=== PATIENT | female | born 1940 | race Caucasian/White ===

== ENCOUNTER → 2018-04-21 | Outpatient (CLI) | payer MEDICARE, OTHER ==
--- NOTE | 2018-04-22 16:45 | WOMENS IMAGING REPORT ---
EXAM DESCRIPTION: 3D SCREENING MAMMO BILAT COMPLETED DATE/TIME: 04/21/2018 1:29 pm REASON FOR STUDY: SCREENING MAMMO Z12.31 ENCNTR SCREEN MAMMOGRAM FOR MALIGNANT NEOPLASM OF [place] COMPARISON: Multiple since 2008 TECHNIQUE: Standard craniocaudal and mediolateral oblique views of each breast recorded using digita l acquisition and breast tomosynthesis. LIMITATIONS: None. FINDINGS: RIGHT BREAST MASSES: No suspicious masses. CALCIFICATIONS: At the right breast 12 o'clock position, about 8 cm from the nipple there are new bra nching calcifications which require further investigation with compression magnification views. ARCHITECTURAL DISTORTION: None. DEVELOPING DENSITY: None. ASYMMETRY: None noted. OTHER: No other significant findings. LEFT BREAST MASSES: No suspicious masses. CALCIFICATIONS: No new or suspicious calcifications. ARCHITECTURAL DISTORTION: None. DEVELOPING DENSITY: None. ASYMMETRY: None noted. OTHER: No other significant findings. Read with the assistance of CAD. .[facility] - R2 Cenova Version 1.3 .[facility] Imaging - R2 Cenova Version 1.3 .[facility] Imaging - R2 Cenova Version 2.4 .[facility] - R2 Cenova Version 2.4 .[facility] - R2 Environmental Compliance Manager Version 9.2 IMPRESSION: Calcifications right breast which require further evaluation with compression magnificat ion views No mammographic evidence for malignancy left breast BREAST DENSITY: c. The breasts are heterogeneously dense, which may obscure small masses. BIRAD: 0 Incomplete: Needs Additional Imaging Evaluation and/or prior Mammograms for Comparison. RECOMMENDATION: RECOMMENDED FOLLOW-UP: Right breast diagnostic mammograms The patient will be contacted for additional imaging. COMMENT: The patient has been notified of the results by letter per SA requirements. Additional no tification policies are in place for contacting patient with suspicious or incomplete findings. Quality ID #[id number]: The [employer] recommends an annual screening mammogram for women aged 40 years or over. This facility utilizes a reminder system to ensure that all patients receive reminder letters, and/or direct phone calls for appointments. This includes reminders for routine scr eening mammograms, diagnostic mammograms, or other Breast Imaging Interventions when appropriate. Th is patient will be placed in the appropriate reminder system. The [employer] (ACR) has developed recommendations for screening MRI of the breast s in certain patient populations, to be used in conjunction with mammography. Breast MRI surveillanc e may be appropriate for women with more than 20% lifetime risk of developing breast cancer as deter mined by genetic testing, significant family history of the disease, or history of mantle radiation f or Hodgkins Disease. ACR Practice Guidelines 2008. DBT Technology DBT is a type of tomographic mammography. With conventional mammography, overlapping breast tissue ma y make lesions difficult to detect, even with good compression. DBT uses an x-ray tube that rotates a round the breast, taking images at different angles. These images are then combined to create thin sl ices of the breast that the radiologist can view as a 3D reconstruction. The [employer] unit can perform full-field digital mammograms (2D imaging); or DBT (3D imaging); or both, in a combination mode that quickly performs both the mammogram and the tomosynthesis scan while the breast is still compressed. PQRS 6045F: Fluoroscopic imaging is not utilized for breast tomosynthesis. TECHNICAL DOCUMENTATION: FINDING NUMBER: (1) ASSESSMENT: (1) JOB ID: [id number] [employer]- All Rights Reserved Reading location - IP/workstation name: [email or web address]
== END ==
LOC: WI 13:11
PROVIDERS: ATTEND Internal Medicine
DX: Z12.31 Encounter for screening mammogram for malignant neoplasm of breast (principal)
CPT/HCPCS: 77063; 77067

== ENCOUNTER → 2018-04-30 | Outpatient (CLI) | payer MEDICARE, OTHER ==
--- NOTE | 2018-04-30 15:41 | WOMENS IMAGING REPORT ---
EXAM DESCRIPTION: RIGHT DIAGNOSTIC MAMMO W/CAD; U/S BREAST UNILAT LIMITED COMPLETED DATE/TIME: 04/30/2018 12:52 pm; 04/30/2018 1:54 pm REASON FOR STUDY: MICROCALCIFICATIONS; RT BREAST R92.0 R92.0 MAMMOGRAPHIC MICROCALCIFICATION FOUND ON DX IMAGING OF COMPARISON: Multiple previous mammograms and 2009 TECHNIQUE: Compression magnification craniocaudal and 90 mediolateral images of the breast recorde d with digital acquisition. Additional right whole breast 90 mediolateral view. Right breast ultrasound was also performed. LIMITATIONS: None. FINDINGS: BREAST: Right MASSES: At the 12 o'clock position right breast, an ill-defined mammographic mass is present measurin g about 3 cm in greatest diameter. There are pleomorphic branching calcifications in the mass. This is highly suspicious for malignancy. CALCIFICATIONS: Pleomorphic branching calcifications in the right breast mass at the 12 o'clock posit ion highly suspicious for malignancy ARCHITECTURAL DISTORTION: None. DEVELOPING DENSITY: None. ASYMMETRY: None noted. OTHER: No other significant findings. Read with the assistance of CAD. .[facility] - R2 Cenova Version 1.3 .[facility] Imaging - R2 Cenova Version 1.3 .[facility] Imaging - R2 Cenova Version 2.4 .[facility] - R2 Cenova Version 2.4 .[facility] - R2 Technical Training Manager Version 9.2 Right breast ultrasound: Ultrasound of the right breast was performed by myself as well as the technologist. At the 12 o'cloc k position, 7 cm from the nipple, a hypoechoic solid mass is present measuring about 2.5 by 1.5 cm in size. There is internal color flow present. On real-time scanning, the calcifications of concern a re seen within the mass. This is highly suspicious for malignancy. Ultrasound-guided core biopsy wi th post biopsy clip placement with follow-up two-view postprocedure mammogram recommended. Ultrasound of the right axilla is unremarkable. No adenopathy. IMPRESSION: Malignant appearing right breast mass 7 cm from the nipple 12 o'clock position. Ultraso und-guided core biopsy, post biopsy clip placement with immediate post procedure follow-up two-view m ammogram recommended. BREAST DENSITY: b. There are scattered areas of fibroglandular density. BIRAD: 5 Highly suggestive of malignancy. Appropriate action should be taken. RECOMMENDATION: RECOMMENDED FOLLOW UP: Right breast ultrasound-guided core biopsy with post biopsy c lip placement 12 o'clock position SPECIFIC INTERVENTION/IMAGING/CONSULTATION RECOMMENDED:Right breast ultrasound-guided core biopsy wit h post biopsy clip placement COMMUNICATION:These results were discussed with the patient. She is amenable to biopsy being perform ed at [facility] COMMENT: The patient has been notified of the results by letter per SA requirements. Additional no tification policies are in place for contacting patient with suspicious or incomplete findings. Quality ID #225: The [employer] recommends an annual screening mammogram for women aged 40 years or over. This facility utilizes a reminder system to ensure that all patients receive reminder letters, and/or direct phone calls for appointments. This includes reminders for routine scr eening mammograms, diagnostic mammograms, or other Breast Imaging Interventions when appropriate. Th is patient will be placed in the appropriate reminder system. The [employer] (ACR) has developed recommendations for screening MRI of the breast s in certain patient populations, to be used in conjunction with mammography. Breast MRI surveillanc e may be appropriate for women with more than 20% lifetime risk of developing breast cancer as deter mined by genetic testing, significant family history of the disease, or history of mantle radiation f or Hodgkins Disease. ACR Practice Guidelines 2008. TECHNICAL DOCUMENTATION: FINDING NUMBER: (1) ASSESSMENT: (1) JOB ID: [id number] [email or web address]- All Rights Reserved Reading location - IP/workstation name: [email or web address]
--- NOTE | 2018-04-30 15:41 | WOMENS IMAGING REPORT ---
EXAM DESCRIPTION: RIGHT DIAGNOSTIC MAMMO W/CAD; U/S BREAST UNILAT LIMITED COMPLETED DATE/TIME: 04/30/2018 12:52 pm; 04/30/2018 1:54 pm REASON FOR STUDY: MICROCALCIFICATIONS; RT BREAST R92.0 R92.0 MAMMOGRAPHIC MICROCALCIFICATION FOUND ON DX IMAGING OF COMPARISON: Multiple previous mammograms and 2009 TECHNIQUE: Compression magnification craniocaudal and 90 mediolateral images of the breast recorde d with digital acquisition. Additional right whole breast 90 mediolateral view. Right breast ultrasound was also performed. LIMITATIONS: None. FINDINGS: BREAST: Right MASSES: At the 12 o'clock position right breast, an ill-defined mammographic mass is present measurin g about 3 cm in greatest diameter. There are pleomorphic branching calcifications in the mass. This is highly suspicious for malignancy. CALCIFICATIONS: Pleomorphic branching calcifications in the right breast mass at the 12 o'clock posit ion highly suspicious for malignancy ARCHITECTURAL DISTORTION: None. DEVELOPING DENSITY: None. ASYMMETRY: None noted. OTHER: No other significant findings. Read with the assistance of CAD. .[facility] - R2 Cenova Version 1.3 .[facility] Imaging - R2 Cenova Version 1.3 .[facility] Imaging - R2 Cenova Version 2.4 .[facility] - R2 Cenova Version 2.4 .[facility] - R2 Residential Aide Version 9.2 Right breast ultrasound: Ultrasound of the right breast was performed by myself as well as the technologist. At the 12 o'cloc k position, 7 cm from the nipple, a hypoechoic solid mass is present measuring about 2.5 by 1.5 cm in size. There is internal color flow present. On real-time scanning, the calcifications of concern a re seen within the mass. This is highly suspicious for malignancy. Ultrasound-guided core biopsy wi th post biopsy clip placement with follow-up two-view postprocedure mammogram recommended. Ultrasound of the right axilla is unremarkable. No adenopathy. IMPRESSION: Malignant appearing right breast mass 7 cm from the nipple 12 o'clock position. Ultraso und-guided core biopsy, post biopsy clip placement with immediate post procedure follow-up two-view m ammogram recommended. BREAST DENSITY: b. There are scattered areas of fibroglandular density. BIRAD: 5 Highly suggestive of malignancy. Appropriate action should be taken. RECOMMENDATION: RECOMMENDED FOLLOW UP: Right breast ultrasound-guided core biopsy with post biopsy c lip placement 12 o'clock position SPECIFIC INTERVENTION/IMAGING/CONSULTATION RECOMMENDED:Right breast ultrasound-guided core biopsy wit h post biopsy clip placement COMMUNICATION:These results were discussed with the patient. She is amenable to biopsy being perform ed at [facility] COMMENT: The patient has been notified of the results by letter per SA requirements. Additional no tification policies are in place for contacting patient with suspicious or incomplete findings. Quality ID #225: The [employer] recommends an annual screening mammogram for women aged 40 years or over. This facility utilizes a reminder system to ensure that all patients receive reminder letters, and/or direct phone calls for appointments. This includes reminders for routine scr eening mammograms, diagnostic mammograms, or other Breast Imaging Interventions when appropriate. Th is patient will be placed in the appropriate reminder system. The [employer] (ACR) has developed recommendations for screening MRI of the breast s in certain patient populations, to be used in conjunction with mammography. Breast MRI surveillanc e may be appropriate for women with more than 20% lifetime risk of developing breast cancer as deter mined by genetic testing, significant family history of the disease, or history of mantle radiation f or Hodgkins Disease. ACR Practice Guidelines 2008. TECHNICAL DOCUMENTATION: FINDING NUMBER: (1) ASSESSMENT: (1) JOB ID: [id number] [employer]- All Rights Reserved Reading location - IP/workstation name: [email or web address]
== END ==
LOC: WI 12:34
PROVIDERS: ATTEND Internal Medicine
DX: R92.0 Mammographic microcalcification found on diagnostic imaging of breast (principal)
CPT/HCPCS: 76642

== ENCOUNTER → 2018-05-12 | Day surgery (SDC) | payer MEDICARE, OTHER ==
[~2018-05-12] MED LIST: LIDOCAINE 2% INJ (20 MG/ML) 20 ML MDV ONE
--- NOTE | 2018-05-15 17:53 | WOMENS IMAGING REPORT ---
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 The patient was scanned and the area of interest in the 12 o'clock position 10 cm from the nipple of the right breast was localized. This correlates with the area of concern on prior imaging studies. T his area was targeted for ultrasound-guided core biopsy. After sterile skin prep and 2.5 mL local lidocaine 1% for skin and deep tissue anesthesia, a 14 gauge coaxial core biopsy needle was used to obtain several cores of tissue from the lesion. Under ultras ound guidance, a ribbon clip was placed in the areas sampled. There were no immediate post-procedure complications. MAMMOGRAM: Post-procedure two view mammogram was acquired in the digital mammogram suite. The clip wa s in the expected location. No significant hematoma. Pathology yields a diagnosis of malignancy, invasive poorly differentiated ductal carcinoma Pathology is concordant. LIMITATIONS: None. FINDINGS: Ultrasound guided breast biopsy as described above. POST PROCEDURE MAMMOGRAMS FOR MARKER PLACEMENT: Yes IMPRESSION: ULTRASOUND-GUIDED CORE BIOPSY OF THE RIGHT BREAST YIELDS A DIAGNOSIS OF MALIGNANCY BI-RADS 6 Known biopsy-proven malignancy. Appropriate action should be taken. COMMENT: These results were discussed with the patient 1600 hours, 05/14/2018. She understands this is a malignant diagnosis. COMMUNICATION: THESE RESULTS WERE DISCUSSED WITH DR. GODFREY, 1630 HOURS 05/14/2018. Patient medication list reviewed: Yes- Quality ID# [id number]:Eligible professional attests to documenting i n the medical record they obtained, updated, or reviewed the patient's current medications. TECHNICAL DOCUMENTATION: JOB ID: [id number] [employer]- All Rights Reserved Reading location - IP/workstation name: [email or web address]
== END ==
LOC: WI 12:31
PROVIDERS: ATTEND Internal Medicine
DX: C50.911 Malignant neoplasm of unspecified site of right female breast (principal)
CPT/HCPCS: 88342 ×2; 88341 ×2; 88305 ×2; 19083; J3490

== ENCOUNTER 2018-06-10 08:19 | Day surgery (SDC) | payer MEDICARE, OTHER ==
[2018-06-04 10:58] LABS: HEMATOCRIT 37.8 % (36.0-47.0); HEMOGLOBIN 13.5 g/dL (12.0-15.5); MEAN CORPUSCULAR HEMOGLOBIN 34.8 pg (27.0-33.4); MEAN CORPUSCULAR HGB CONC 35.6 g/dL (32.0-36.0); MEAN CORPUSCULAR VOLUME 98 fl (80-97); PLATELET COUNT 184 10^3/uL (150-450); RED BLOOD COUNT 3.88 10^6/uL (3.72-5.28); WHITE BLOOD COUNT 4.6 10^3/uL (4.0-10.5)
--- NOTE | 2018-06-04 10:59 | RADIOLOGY REPORT (SQ) ---
EXAM DESCRIPTION: CHEST PA/LATERAL COMPLETED DATE/TIME: 06/04/2018 10:48 am REASON FOR STUDY: PRE-OP COMPARISON: None. EXAM PARAMETERS: NUMBER OF VIEWS: two views TECHNIQUE: Digital Frontal and Lateral radiographic views of the chest acquired. RADIATION DOSE: NA LIMITATIONS: none FINDINGS: LUNGS AND PLEURA: Upper lobes are hyperlucent from obstructive disease. No focal infiltra elvin. No pleural effusion or pneumothorax. MEDIASTINUM AND HILAR STRUCTURES: No masses or contour abnormalities. HEART AND VASCULAR STRUCTURES: Heart normal size. No evidence for failure. BONES: Osteopenic. No thoracic compression deformities HARDWARE: None in the chest. OTHER: No other significant finding. IMPRESSION: Obstructive lung disease. TECHNICAL DOCUMENTATION: JOB ID: [id number] [employer]- All Rights Reserved Reading location - IP/workstation name: [email or web address]
--- NOTE | 2018-06-04 11:36 | EKG REPORT ---
SEVERITY:- NORMAL ECG - SINUS RHYTHM : Confirmed by: Joan Servin MD 04-Jun-2018 11:35:53
[2018-06-04 12:01] LABS: ALANINE AMINOTRANSFERASE 53 U/L (9-52); ALBUMIN 4.6 g/dL (3.5-5.0); ALKALINE PHOSPHATASE 32 U/L (38-126); ANION GAP 11 (5-19); ASPARTATE AMINO TRANSFERASE 44 U/L (14-36); BILIRUBIN,DIRECT 0.4 mg/dL (0.0-0.4); BILIRUBIN,TOTAL 0.6 mg/dL (0.2-1.3); BLOOD UREA NITROGEN 12 mg/dL (7-20); CALCIUM 9.6 mg/dL (8.4-10.2); CARBON DIOXIDE 28 mmol/L (22-30); CHLORIDE 95 mmol/L (98-107); GLUCOSE 119 mg/dL (75-110); POTASSIUM 4.1 mmol/L (3.6-5.0); SODIUM 134.1 mmol/L (137-145); TOTAL PROTEIN 7.4 g/dL (6.3-8.2)
[~2018-06-10 08:19] MED LIST changes: +CEFAZOLIN 1 GM/D5W RTU 1 GM/50 ML RTUPB IV PRN; -LIDOCAINE 2% INJ (20 MG/ML) 20 ML MDV ONE; +LIDOCAINE 4% TRANSPARENT DRESSING 5 GM KIT TP PRN; +RINGERS SOLUTION,LACTATED 1,000 ML IV PRN
[2018-06-10 09:54] LABS: POTASSIUM 3.9 mmol/L (3.6-5.0)
[2018-06-10] MEDS ORDERED: LIDOCAINE 2% INJ (20 MG/ML) 20 ML MDV ONE (10:41)
[2018-06-10] MEDS ORDERED: FENTANYL CITRATE INJ/PF 100 MCG/2 ML AMPUL ONE ×2 (13:25→15:58)
[2018-06-10] MEDS ORDERED: DEXAMETHASONE SOD PHOSPHATE INJ 4 MG/1 ML VIAL ONE (13:26)
[2018-06-10] MEDS ORDERED: ONDANSETRON HCL INJ/PF 4 MG/2 ML SDV ONE (13:26)
[2018-06-10] MEDS ORDERED: MIDAZOLAM 2 MG/2 ML INJ ONE (13:26)
[2018-06-10] MEDS ORDERED: PROPOFOL INJ 200 MG/20 ML VIAL IV ONE (13:26)
[2018-06-10] MEDS ORDERED: HYDROMORPHONE HCL INJ/PF 2 MG/ML AMPULE ONE (13:26)
[2018-06-10] MEDS ORDERED: LIDOCAINE 1%/EPINEPHRINE INJ 20 ML VIAL ONE (13:29)
[2018-06-10] MEDS ORDERED: MICROFIBRILLAR COLLAGEN 1 GM PACK ONE (13:29)
--- NOTE | 2018-06-10 13:42 | RADIOLOGY REPORT (SQ) ---
EXAM DESCRIPTION: NM LYMPHATICS/LYMPH GLANDS COMPLETED DATE/TIME: 06/10/2018 10:42 am REASON FOR STUDY: RT BREAST CANCER C50.911 MALIGNANT NEOPLASM OF UNSP SITE OF RIGHT FEMALE MICHLELE Z79 .01 RN REHABILITATION (CURRENT) USE OF ANTICOAGULANTS Z79.899 OTHER HALFWAY (CURRENT) DRUG THERAPY COMPARISON: CT cervical spine 01/16/2017 RADIONUCLIDE AND DOSE: 548 microcuries TC-99m tilmanocept - Lymphoseek. The route of agent administration: Subcutaneous in the skin. TECHNIQUE: The skin of the right breast was prepped in sterile fashion. The radiopharmaceutical was administered in equally divided doses in the periareolar breast, from the 10 o'clock to the 2 o'cloc k position. LIMITATIONS: None. FINDINGS: Images demonstrate activity at the injection site. There is migration toward the right ax illa. IMPRESSION: ADMINISTRATION OF RADIOPHARMACEUTICAL FOR SENTINEL LYMPH NODE EVALUATION. TECHNICAL DOCUMENTATION: JOB ID: [id number] [email or web address]- All Rights Reserved Reading location - IP/workstation name: [email or web address]
[2018-06-10] MEDS ORDERED: METHYLENE BLUE 50 MG/10 ML AMPULE ONE (13:45)
[2018-06-10] MEDS ORDERED: EPHEDRINE SULFATE INJ 50 MG/1 ML AMPULE ONE (14:22)
[2018-06-10] MEDS ORDERED: FENTANYL CITRATE INJ/PF 250 MCG/5 ML AMPULE ONE (15:06)
[2018-06-10] MEDS ORDERED: MEPERIDINE HCL/PF INJ 25 MG/1 ML DISP.SYRIN IV PRN (15:12)
[2018-06-10] MEDS ORDERED: DIPHENHYDRAMINE HCL 50 MG/ML VIAL IV PRN (15:12)
[2018-06-10] MEDS ORDERED: MORPHINE SULFATE 10 MG/ML INJ IV PRN (15:12)
[2018-06-10] MEDS ORDERED: PROMETHAZINE HCL INJ 25 MG/1 ML VIAL IV PRN ×2 (15:12)
[2018-06-10] MEDS ORDERED: FENTANYL CITRATE INJ/PF 100 MCG/2 ML AMPUL IV PRN ×3 (15:12)
--- NOTE | 2018-06-10 15:35 | Operative Report ---
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 Open needle localized excisional biopsy right breast carcinoma. 2. Use of ultrasonography during the lumpectomy. 3. Intraoperative imaging of specimen with interpretation. 4. [place] lymph node biopsy right axilla using dual mapping technique. SURGEON: NIDA STOCK ARC WELDER: ZAHRAA ENRIQUEZ ANESTHESIA: GA TISSUE REMOVED OR ALTERED: Right breast lump with needle 1, wire 2, microcalcifications; sentinel lymph node right axilla 1 COMPLICATIONS: None ESTIMATED BLOOD LOSS: Scant INTRAOPERATIVE FINDINGS: See below PROCEDURE: Patient seen in preop holding area after undergoing lymphoscintigraphy the right breast. She had area of increased activity in the right axilla consistent with successful sentinel lymph node pain. The patient was taken directly to the operating room she underwent general anesthesia. The right arm was abducted, dressings removed, hubs of both localizing needles and wires removed with the street light wirer. Right breast exposed , and blue dye, methylene blue, injected into the right breast, areole or border , intradermally, a 25-gauge needle. Right breast massage, then prepped and draped in a sterile fashion. Surgical plan surgical timeout conducted. We performed intraoperative ultrasonography. The localizing needles and wires were full echoic tissue, with microcalcifications consistent with malignancy confirmed between the 2 wires. The skin was anesthetized with 1% plain lidocaine with epinephrine. Approximately 6 cm transverse upper quadrant incision was made along the lines of langherhans. Using real-time ultrasonography as a guide, we performed a right breast lumpectomy using combination of blunt and electrocautery dissection. The lump excised is approximately 10 cm in diameter, with specimen oriented anatomically with the 12:00 needle line in the 12 o'clock position. We then rotated the mass 90 caudad for a second view. The findings were consistent with retention of 2 wires, and one needle; the second needle was removed from the right breast during the dissection. The target microcalcifications and masslike effect were also identified. Dr. Rachel Ortega , radiologist, confirmed successful retention of wires, needle, and microcalcifications as well as a clip marker placed during previous ultrasonographically directed core biopsy. Assessment was sent to pathology for permanent analysis operation. The neoprobe was used to localize a single dominant central lymph node which was in the low axilla, level 1 with an in vivo count of 8884 and an ex vivo count of 10 ,151. This lymph node was associated with a non-blue lymph node in this immediate vicinity and this was submitted with the single sentinel lymph node described above. We returned to the right axilla and scan did not increased activity in the axilla. We felt that the sentinel node harvest portion of the operation was complete. The wound cavity was inspected very carefully for bleeding and there was none. Avitene was placed in the recesses of the wound and a slurry consistency, the wound closed with 3-0 Vicryl, bungalow applied. Patient tolerated the procedure well, extubated, taken to recovery room in stable condition. The physician accounting assistant, Ms. Jaime, provided assistance during this case by: Assisting, retracting tissue, instillation of local anesthesia and closure of skin incisions.
--- NOTE | 2018-06-10 15:43 | Discharge Summary ---
Discharge Summary (SDC) - Discharge Final Diagnosis: Right breast cancer Date of Surgery: 06/10/18 Discharge Date: 06/10/18 Condition: Stable Treatment or Instructions: [facility] [address], [place] [address] Care Instructions Following Your Lumpectomy Activities: Resume normal activities when you feel comfortable. It is best to remain as active as possible to speed your recovery. It is common to experience some fatigue after surgery and you may find that short naps are helpful. Avoid strenuous activity such as weight lifting, tennis, etc at your surgical site for two weeks. Perform gentle arm exercises daily and do not favor your operative arm to due increased risk of mobility issues postoperatively. No driving for 7 days after surgery. Do not drive if you are taking pain medication other than Tylenol or Ibuprofen. No swimming, tub baths or soaking in a hot tub for 4 weeks. There are no dietary restrictions. Do not smoke as this impairs wound healing. Surgical Site care: You may shower in 24 hours to include washing the wound with soap and water using your hands. Leave skin glue intact. Do not scrub the incision. Pat the area dry with a towel. You do not need to recover the wound although some patients find that they feel more comfortable using a light dressing for a few days to absorb any minimal drainage which may occur. Do not use heating pad or apply an ice pack to the operative site. You may apply deodorant if you are careful to avoid getting it on the wound itself. Medications: Take Toradol 10mg one pill by mouth every six hours as needed for pain. Resume all of your normal prescription medications after your surgery unless instructed otherwise. You may experience constipation after surgery while taking pain medications. If using a narcotic on a regular basis, take a stool softener such as Colace twice a day. It is helpful to stay hydrated by drinking lots of fluids. Walking is also helpful and is good exercise after surgery. If you need extra help, use Milk of Magnesia according to the directions on the package. Follow-up: Call our office at to make a follow-up appointment in 10-14 days. Your doctor will call to discuss the pathology report with you as soon as it is available. Concerns: If you had a sentinel lymph node biopsy with your mastectomy, your urine may have a greenish discoloration. This is normal and will resolve as the blue dye slowly leaves your system. If you notice significant leakage around the drains , this is not normal. The drains may be clogged. Please call our office to come in immediately for the drains to be checked. Some bruising may occur and will go away over time. If you have a fever of 101.5 or greater, chills, redness at the incision site, excessive drainage from your wound or severe pain not relieved by pain medication, call your doctor. A physician is available 24 hours a day 7 days a week in addition to regular office hours. If problems arise after normal office hours please call the hospital at . Please call if you have any questions or concerns. Prescriptions: Ketorolac Tromethamine [Toradol 10 mg Tablet] 10 mg PO Q6HP PRN #20 tablet PRN Reason: Referrals: WENDY GODFREY MD [Primary Care Provider] - Discharge Diet: As Tolerated Discharge Activity: No Lifting Over 10 Pounds, No Lifting/Push/Pulling, Walk Frequently Report the Following to Your Physician Immediately: Increase in Pain, Fever over 101 Degrees, Unusual Bleeding, Redness, Drainage-Foul Smelling
[2018-06-10] MEDS ORDERED: NALOXONE HCL INJ/PF 0.4 MG/1 ML SDV ONE (16:00)
[2018-06-10] MEDS ORDERED: KETOROLAC TROMETHAMINE 10 MG TABLET ONE (16:36)
[2018-06-10 17:51] VITALS: BP 149/75
[2018-06-10] MEDS ORDERED: NEOSTIGMINE METHYLSULFATE 10 MG/10 ML VIAL ONE (20:09)
[2018-06-10] MEDS ORDERED: GLYCOPYRROLATE 1 MG/5 ML SYRINGE ONE (20:09)
[2018-06-10] MEDS ORDERED: ROCURONIUM BROMIDE INJ 50 MG/5 ML VIAL IV ONE (20:09)
[2018-06-10] MEDS ORDERED: SUCCINYLCHOLINE CHLORIDE INJ 200 MG/10 ML VIAL ONE (20:09)
--- NOTE | 2018-06-15 17:45 | WOMENS IMAGING REPORT ---
EXAM DESCRIPTION: WIRE LOC MAMMO COMPLETED DATE/TIME: 06/10/2018 2:33 pm REASON FOR STUDY: RT BREAST NEEDLE LOCALIZATION C50.911 MALIGNANT NEOPLASM OF UNSP SITE OF RIGHT FE MALE MICHELLE Z79.01 TRAY CHECKER (CURRENT) USE OF ANTICOAGULANTS Z79.899 OTHER TRAY CHECKER (CURRENT) DRUG T HERAPY COMPARISON: Multiple previous TECHNIQUE: The lesion in the right breast was localized mammographically using a grid marker. The skin of the breast was prepped in sterile fashion and local anesthesia was provided. 5 cm Kopan's ne edles were placed along the anterior most and posterior most extent of the pleomorphic calcifications in the right breast 12 o'clock position. The needle tips were positioned adjacent to the target sulema cifications and confirmed with two orthogonal views. Surgical dye was not injected for this procedure . The wire was placed through the needle and the hook engaged. Post procedure mammogram demonstrates satisfactory position of the needle and wire. Specimen radiograph demonstrates the intact localization wire as well as the targeted lesion within t he biopsy specimen. LIMITATIONS: None. FINDINGS: Procedure as above. Pathology: Pending. IMPRESSION: SUCCESSFUL NEEDLE LOCALIZATION OF THE LESION IN THE RIGHT BREAST. FOLLOW-UP PER THE PATIENT'S SURGEON. TECHNICAL DOCUMENTATION: JOB ID: [id number] [employer]- All Rights Reserved Reading location - IP/workstation name: [email or web address]
--- NOTE | 2018-06-15 17:46 | RADIOLOGY REPORT (SQ) ---
EXAM DESCRIPTION: BREAST SPECIMEN COMPLETED DATE/TIME: 06/10/2018 3:23 pm REASON FOR STUDY: BREAST SPECIMEN/BIOPSY RIGHT BREAST C50.911 MALIGNANT NEOPLASM OF UNSP SITE OF R IGHT FEMALE MICHELLE Z79.01 ASSISTED (CURRENT) USE OF ANTICOAGULANTS Z79.899 OTHER ASSISTED (CURRENT) DRUG THERAPY COMPARISON: Multiple previous TECHNIQUE: Specimen radiograph from breast procedure performed in the operating room. LIMITATIONS: None. FINDINGS: Specimen radiograph from breast procedure performed in the operating room. Calcification s of concern have been resected. Please see procedure note for details and final pathology. IMPRESSION: Specimen radiograph. TECHNICAL DOCUMENTATION: JOB ID: [id number] Reading location - IP/workstation name: [email or web address]
== END 2018-06-10 17:53 | disposition home or self-care (01) ==
LOC: OROUT 08:19
PROVIDERS: ATTEND Surgery
DX: C50.911 Malignant neoplasm of unspecified site of right female breast (principal); K21.9 Gastro-esophageal reflux disease without esophagitis; I10 Essential (primary) hypertension; E11.9 Type 2 diabetes mellitus without complications; F17.210 Nicotine dependence, cigarettes, uncomplicated; Z79.84 Long term (current) use of oral hypoglycemic drugs; Z79.899 Other long term (current) drug therapy; Z88.5 Allergy status to narcotic agent
CPT/HCPCS: 93005; 36415 ×2; 82962; 82947; 84132; 85027; 80053; 88342 ×2; 88307 ×2; 71046; 78195; 93010; 19281; 76098; 19101; 38500; A9520; J2250; J3490 ×7; J0690; J1100; J3010 ×2; J2310; J1170; J0330; J2405; A9270; J2704; Q9968; 1610

== ENCOUNTER 2018-07-18 16:56 | Inpatient (IN) | payer MEDICARE, OTHER ==
--- NOTE | 2018-07-18 18:55 | ER Document Report ---
ED Medical Screen (RME) - General Chief Complaint: Breast Problem Stated Complaint: BREAST ISSUE Time Seen by Provider: 07/18/18 18:53 Notes: 77-year-old female patient with recent diagnosis of breast cancer. Had lumpectomy performed by Dr. Cox with general surgery on 06/10/2018. Today at approximately 1700 she began to notice drainage coming out of the previous incision site. Seems to be yellow. Some tenderness to palpation. Denies any fever, chills, sweats. Denies any shortness of breath or other symptoms at this time. I have greeted and performed a rapid initial assessment of this patient. A comprehensive ED assessment and evaluation of the patient, analysis of test results and completion of the medical decision making process will be conducted by additional ED providers. TRAVEL OUTSIDE OF THE [place] IN LAST 30 DAYS: No - Related Data Allergies/Adverse Reactions: aspirin [From Percodan] Allergy (Verified 07/18/18 16:59) itching oxycodone HCl [From Percodan] Allergy (Verified 07/18/18 16:59) itching oxycodone terephthalate [From Percodan] Allergy (Verified 07/18/18 16:59) itching Past Medical History - Past Medical History Cardiac Medical History: Reports: Hx Hypercholesterolemia, Hx Hypertension - ON MEDS Denies: Hx Coronary Artery Disease, Hx Heart Attack Pulmonary Medical History: Denies: Hx Asthma, Hx Bronchitis, Hx COPD, Hx Pneumonia Neurological Medical History: Denies: Hx Cerebrovascular Accident, Hx Seizures GI Medical History: Reports: Hx Gastroesophageal Reflux Disease Musculoskeltal Medical History: Reports Hx Arthritis - OSTEO Past Surgical History: Reports: Hx Appendectomy, Hx Breast Surgery - left breast lumpectomy, Hx Kidney (Renal Surgery) - Immunizations Hx Diphtheria, Pertussis, Tetanus Vaccination: Yes History of Influenza Vaccine for 07/2017 - 12/2017 Season: Yes Influenza Administration Date for 07/2017 - 12/2017 Season: 07/28/17 Physical Exam - Vital signs Vitals: Temp Pulse Resp BP Pulse Ox 98.8 F 60 16 177/80 H 99 07/18/18 17:30 07/18/18 17:30 07/18/18 17:30 07/18/18 17:30 07/18/18 17:30 Course - Vital Signs Vital signs: Temp Pulse Resp BP Pulse Ox 98.8 F 60 16 177/80 H 99 07/18/18 17:30 07/18/18 17:30 07/18/18 17:30 07/18/18 17:30 07/18/18 17:30 Doctor's Discharge - Discharge Referrals: NIDA CXO MD [Primary Care Provider] - Follow up as needed
--- NOTE | 2018-07-18 19:56 | ER Document Report ---
ED General - General Chief Complaint: Breast Problem Stated Complaint: BREAST ISSUE Time Seen by Provider: 07/18/18 18:53 Notes: This is a 77-year-old female patient to the emergency department for drainage from the right breast. Patient had surgery approximately 1-1/2 months ago. Diagnosed with breast cancer. Has not received chemo or radiation yet. Surgery performed by Dr. Cox. Has been doing just fine and then today noticed that she had yellow drainage coming out of her right breast. Denies any fever, chills, sweats at this time but does complain of pain in the right breast now. TRAVEL OUTSIDE OF THE [place] IN LAST 30 DAYS: No - HPI Onset: Just prior to arrival Onset/Duration: Sudden Quality of pain: Achy Severity: Moderate Pain Level: 3 - Related Data Allergies/Adverse Reactions: aspirin [From Percodan] Allergy (Verified 07/18/18 16:59) itching oxycodone HCl [From Percodan] Allergy (Verified 07/18/18 16:59) itching oxycodone terephthalate [From Percodan] Allergy (Verified 07/18/18 16:59) itching Past Medical History - General Information source: Patient - Social History Smoking Status: Current Every Day Smoker Chew tobacco use (# tins/day): No Frequency of alcohol use: None Drug Abuse: None Lives with: Family Family History: Reviewed & Not Pertinent Patient has suicidal ideation: No Patient has homicidal ideation: No - Past Medical History Cardiac Medical History: Reports: Hx Hypercholesterolemia, Hx Hypertension - ON MEDS Denies: Hx Coronary Artery Disease, Hx Heart Attack Pulmonary Medical History: Denies: Hx Asthma, Hx Bronchitis, Hx COPD, Hx Pneumonia Neurological Medical History: Denies: Hx Cerebrovascular Accident, Hx Seizures Renal/ Medical History: Denies: Hx Peritoneal Dialysis GI Medical History: Reports: Hx Gastroesophageal Reflux Disease Musculoskeletal Medical History: Reports Hx Arthritis - OSTEO Past Surgical History: Reports: Hx Appendectomy, Hx Breast Surgery - left breast lumpectomy, Hx Kidney (Renal Surgery) - Immunizations Hx Diphtheria, Pertussis, Tetanus Vaccination: Yes Hx Pneumococcal Vaccination: 05/25/18 Review of Systems - Review of Systems Notes: Constitutional: denies: Chills, Diaphoresis, Fever, Malaise, Weakness EENT: denies: Eye discharge, Blurred vision, Tearing, Double vision, Nose congestion, Nose discharge, Throat swelling, Mouth pain Cardiovascular: denies: Palpitations, Heart racing, Orthopnea, Dyspnea, Chest pain Respiratory: denies: Cough, Hurts to breathe, Wheezing, Shortness of breath Gastrointestinal: denies: Abdominal pain, Diarrhea, Nausea, Vomiting, Black stools, bright red blood in stool Genitourinary: denies: Burning, Dysuria, Discharge, Frequency, Flank pain, Hematuria Musculoskeletal: denies: Joint pain, Joint swelling, Muscle pain, Muscle stiffness, back pain Hematologic/Lymphatic: denies: Anemia, Easy bleeding, Easy bruising, Blood clots. Recent diagnosis of breast cancer. Neurological/Psychological: denies: Confusion, Dementia, Depression, Loss of consciousness Skin: No lesions, no masses, no skin breakdown, no abscesses. Does complain of drainage from the right breast where previous lumpectomy was performed. Physical Exam - Vital signs Vitals: Temp Pulse Resp BP Pulse Ox 98.8 F 60 16 177/80 H 99 07/18/18 17:30 07/18/18 17:30 07/18/18 17:30 07/18/18 17:30 07/18/18 17:30 Interpretation: Normal - General General appearance: Appears well, Alert - HEENT Head: Normocephalic, Atraumatic Eyes: Normal Pupils: PERRL - Respiratory Respiratory status: No respiratory distress Chest status: Nontender Breath sounds: Normal Chest palpation: Normal - Cardiovascular Rhythm: Regular Heart sounds: Normal auscultation Murmur: No - Abdominal Inspection: Normal Distension: No distension Bowel sounds: Normal Tenderness: Nontender Organomegaly: No organomegaly - Back Back: Normal, Nontender - Extremities General upper extremity: Normal inspection, Nontender, Normal color, Normal ROM , Normal temperature General lower extremity: Normal inspection, Nontender, Normal color, Normal ROM , Normal temperature, Normal weight bearing. No: Jorge's sign - Neurological Neuro grossly intact: Yes Cognition: Normal Orientation: AAOx4 Addison Coma Scale Eye Opening: Spontaneous Sandhya Coma Scale Verbal: Oriented Addison Coma Scale Motor: Obeys Commands Addison Coma Scale Total: 15 Speech: Normal Motor strength normal: LUE, RUE, LLE, RLE Sensory: Normal - Psychological Associated symptoms: Normal affect, Normal mood - Skin Skin Temperature: Warm Skin Moisture: Dry Skin Color: Other - There is a surgical incision site present on the right lateral breast. There appears to be a small amount of active drainage coming out of the right breast with small amount of erythema noted around the incision site. Very tender to the touch. Course - Re-evaluation Re-evalutation: 07/18/18 19:53 Surgeon has seen, Dr. Castle. At this time he is admitted to the hospital as patient may need to have incision and drainage. Will consult with medicine for management of her diabetes medical problems. - Vital Signs Vital signs: Temp Pulse Resp BP Pulse Ox 98.8 F 60 16 177/80 H 99 07/18/18 17:30 07/18/18 17:30 07/18/18 17:30 07/18/18 17:30 07/18/18 17:30 Discharge - Discharge Clinical Impression: Abscess of right breast Condition: Good Disposition: ADMITTED INPATIENT Admitting Provider: Surgicalist Rahul Castle Unit Admitted: Surgical Floor Referrals: NIDA COX MD [ACTIVE STAFF] - Follow up as needed
--- NOTE | 2018-07-18 20:11 | PDOC H&P ---
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 She reports the occurrence of greenish discharge from the right breast wound this afternoon after shower. She reports occasional discomfort from her breast, no fever, chills, or other systemic symptoms. She is type 2 diabetic and reports good control of her blood sugar and smokes a few cigarettes per day. Past Medical History Cardiac Medical History: Reports: Hyperlipidema, Hypertension - ON MEDS Denies: Coronary Artery Disease, Myocardial Infarction Pulmonary Medical History: Denies: Asthma, Bronchitis, Chronic Obstructive Pulmonary Disease (COPD), Pneumonia Neurological Medical History: Denies: Seizures GI Medical History: Reports: Gastroesophageal Reflux Disease Musculoskeltal Medical History: Reports: Arthritis - OSTEO Hematology: Denies: Anemia Past Surgical History Past Surgical History: Reports: Appendectomy Social History Smoking Status: Current Every Day Smoker - a few per day Frequency of Alcohol Use: Rare Hx Recreational Drug Use: No Drugs: None Family History Family History: Reviewed & Not Pertinent Parental Family History Reviewed: No Children Family History Reviewed: No Sibling(s) Family History Reviewed.: No Medication/Allergy Home Medications: Albuterol Sulfate [Proair HFA] 1 - 2 puff IH PRN PRN 06/04/18 Cholecalciferol (Vitamin D3) [Vitamin D3 2000 unit Tablet] 2,000 unit PO BID 07/14 Doxycycline Hyclate [Vibramycin] 100 mg PO DAILY 06/04/18 Esomeprazole Magnesium [Nexium] 20 mg PO DAILY 06/04/18 Hydrochlorothiazide [Hydrodiuril 12.5 mg Capsule] 12.5 mg PO QAM 06/04/18 Ibandronate Sodium 150 mg PO .MONTHLY 06/04/18 Letrozole [Femara 2.5 Mg Tablet] 2.5 mg PO DAILY 06/04/18 Lisinopril [Prinivil 30 mg Tablet] 30 mg PO DAILY 06/04/18 Metformin HCl [Glucophage] 500 mg PO BID 06/04/18 Metoprolol Tartrate [Lopressor 50 mg Tablet] 50 mg PO BID 06/04/18 Simvastatin 20 mg PO QPM 06/04/18 Ketorolac Tromethamine [Toradol 10 mg Tablet] 10 mg PO Q6HP PRN #20 tablet 06/10 Allergies/Adverse Reactions: aspirin [From Percodan] Allergy (Verified 07/18/18 16:59) itching oxycodone HCl [From Percodan] Allergy (Verified 07/18/18 16:59) itching oxycodone terephthalate [From Percodan] Allergy (Verified 07/18/18 16:59) itching Physical Exam Vital Signs: Temp Pulse Resp BP Pulse Ox 98.8 F 60 16 177/80 H 99 07/18/18 17:30 07/18/18 17:30 07/18/18 17:30 07/18/18 17:30 07/18/18 17:30 Intake & Output 07/17/18 07/18/18 07/19/18 06:59 06:59 06:59 Weight 62.7 kg General appearance: PRESENT: cooperative, mild distress Head exam: PRESENT: atraumatic Eye exam: PRESENT: EOMI Mouth exam: PRESENT: moist, neck supple Neck exam: PRESENT: full ROM Respiratory exam: PRESENT: clear to auscultation kristin Cardiovascular exam: PRESENT: RRR GI/Abdominal exam: PRESENT: normal bowel sounds, soft Rectal exam: PRESENT: deferred Extremities exam: PRESENT: full ROM Musculoskeletal exam: PRESENT: full ROM Psychiatric exam: PRESENT: anxious Skin exam: PRESENT: other - Right breast: redness around wound with pinpoint opening locate @ 12 o'clock 3 inches above areola, diffuse haziness with erythema of the lower half of the breast with tenderness on palpation; right axilla with no tenderness or skin changes Assessment & Plan - Diagnosis (1) Wound infection after surgery Qualifiers: Encounter type: initial encounter Qualified Code(s): T81.4XXA - Infection following a procedure, initial encounter Is this a current diagnosis for this admission?: Yes (2) Mastitis of right breast unrelated to of Is this a current diagnosis for this admission?: Yes - Plan Summary Plan Summary: A/ S/p right breast lumpectomy and SNL for moderte to poorly differentiated ductal carcinima with DCIS, comedo type on 06/10/18 Draining lumpectomy wound from pinpoint opening with yellow fluid Mastitis located right lower breast NIDDM daily smoker P/ Admit for IV Abx Vanco/Zosyn for broad spectrum bacterial coverage Blood work Blood cx US right breast pending Possible I&D right breast lumpectomy wound if US shows loculated fluid collection or area is unresponsive to initial antibiotic treatment Hospitalist on consult for diabetes managment
[2018-07-18] MEDS ORDERED: ACETAMINOPHEN 325 MG TABLET PO PRN (20:15)
[2018-07-18] MEDS ORDERED: PIPERACILLIN/TAZOBACTAM 3.375 GM VIAL IV SCH (20:15)
[2018-07-18 20:55] LABS: ABSOLUTE EOSINOPHILS # (AUTO) 0.1 10^3/uL (0.0-0.6); ABSOLUTE LYMPHOCYTES (AUTO) 1.6 10^3/uL (0.5-4.7); ABSOLUTE MONOCYTES (AUTO) 0.5 10^3/uL (0.1-1.4); ABSOLUTE NEUT (AUTO) 3.5 10^3/uL (1.7-8.2); BASOPHILS % (AUTO) 0.6 % (0-2); EOSINOPHILS % (AUTO) 1.4 % (0-6); HEMATOCRIT 38.8 % (36.0-47.0); HEMOGLOBIN 13.9 g/dL (12.0-15.5); LYMPHOCYTES % (AUTO) 27.8 % (13-45); MEAN CORPUSCULAR HEMOGLOBIN 34.9 pg (27.0-33.4); MEAN CORPUSCULAR HGB CONC 35.8 g/dL (32.0-36.0); MEAN CORPUSCULAR VOLUME 97 fl (80-97); PLATELET COUNT 202 10^3/uL (150-450); RED BLOOD COUNT 3.98 10^6/uL (3.72-5.28); RED CELL DISTRIBUTION WIDTH 12.9 % (11.5-14.0); SEGMENTED NEUTROPHILS % (AUTO) 61.2 % (42-78); TOTAL CELLS COUNTED % (AUTO) 100 %; WHITE BLOOD COUNT 5.7 10^3/uL (4.0-10.5)
[2018-07-18] MEDS ORDERED: PIPERACILLIN/TAZOBACTAM 3.375 GM VIAL IV PRN (21:00)
[2018-07-18 21:13] LABS: ALANINE AMINOTRANSFERASE 51 U/L (9-52); ALBUMIN 4.6 g/dL (3.5-5.0); ALKALINE PHOSPHATASE 37 U/L (38-126); ANION GAP 10 (5-19); ASPARTATE AMINO TRANSFERASE 45 U/L (14-36); BILIRUBIN,DIRECT 0.5 mg/dL (0.0-0.4); BILIRUBIN,TOTAL 0.6 mg/dL (0.2-1.3); BLOOD UREA NITROGEN 8 mg/dL (7-20); CALCIUM 9.7 mg/dL (8.4-10.2); CARBON DIOXIDE 28 mmol/L (22-30); CHLORIDE 90 mmol/L (98-107); GLUCOSE 82 mg/dL (75-110); SODIUM 127.8 mmol/L (137-145); TOTAL PROTEIN 7.2 g/dL (6.3-8.2)
[2018-07-18 21:15] LABS: C-REACTIVE PROTEIN < 5.0 mg/L (<10.0)
[2018-07-18 21:38] LABS: ERYTHROCYTE SEDIMENTATION RATE 16 mm/hr (0-30)
[2018-07-18] MEDS: PIPERACILLIN SODIUM/TAZOBACTAM 3.375 GM in NORMAL SALINE 100 ML IV SCH (21:44)
[2018-07-18] MEDS: NORMAL SALINE 1000 ML 1,000 ML IV PRN (21:45)
[2018-07-18] MEDS ORDERED: VANCOMYCIN HCL INJ 1000 MG VIAL IV PRN (22:00)
[2018-07-18] MEDS ORDERED: GLUCAGON,HUMAN RECOMB 1 MG INJ IM PRN (22:02)
[2018-07-18] MEDS ORDERED: DEXTROSE 50%-WATER 25 GM/50 ML DISP.SYRIN IV PRN ×2 (22:02)
[2018-07-18] MEDS ORDERED: DEXTROSE 40% GEL 15 GM TUBE PO PRN ×2 (22:02)
[2018-07-18] MEDS ORDERED: INSULIN LISPRO 100 UNIT/ML 3 ML VIAL SUBCUT PRN (22:02)
[2018-07-18] MEDS ORDERED: METOPROLOL TARTRATE PF/INJ 5 MG/5 ML SDV IV PRN ×2 (22:03→22:09)
--- NOTE | 2018-07-18 22:21 | RADIOLOGY REPORT (SQ) ---
EXAM DESCRIPTION: Limited right breast sonogram, July 18, 2018 at 9:09 PM CLINICAL HISTORY: post lumpectomy on 06/10 now draining pus COMPARISON: None. FINDINGS: Sonographic images of the right breast at the area of lumpectomy/incision, 12:00 position, were submitted. There is an abnormal fluid collection with debris at this level measuring 4.9 x 4.5 x 1.9 cm worrisome for an abscess. IMPRESSION: Abnormal fluid collection at the 12:00 position compatible with an abscess.
[2018-07-19] MEDS ORDERED: VANCOMYCIN HCL INJ 1000 MG VIAL ONE (00:39)
[2018-07-19] MEDS ORDERED: PIPERACILLIN/TAZOBACTAM 3.375 GM VIAL IV ONE (00:40)
--- NOTE | 2018-07-19 02:43 | PDOC CONSULTATION ---
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 She reports the occurrence of greenish discharge from the right breast wound this afternoon after shower. She reports occasional discomfort from her breast, no fever, chills, or other systemic symptoms. She is type 2 diabetic and reports good control of her blood sugar and smokes a few cigarettes per day. Patient tells me that she does not remember for how many years she is diabetic type II, she is on metformin at home. Her highest blood sugar at home is 150 and the lowest is 76. Does not remember her last A1c. Past Medical History Cardiac Medical History: Reports: Hyperlipidema, Hypertension - ON MEDS Endocrine Medical History: Reports: Diabetes Mellitus Type 2 GI Medical History: Reports: Gastroesophageal Reflux Disease Musculoskeltal Medical History: Reports: Arthritis - OSTEO Past Surgical History Past Surgical History: Reports: Appendectomy, Hysterectomy, Other - Right breast lumpectomy for breast cancer May 2018 Social History Lives with: Family Smoking Status: Current Every Day Smoker - Half pack per day for a little bit more Frequency of Alcohol Use: Heavy - Daily alcohol, 2-3 beers a day Hx Recreational Drug Use: No Drugs: None Family History Family History: Reviewed & Not Pertinent Parental Family History Reviewed: Yes - Grandfather with history of diabetes mellitus type 2 Children Family History Reviewed: NA Sibling(s) Family History Reviewed.: NA Medication/Allergy Home Medications: Albuterol Sulfate [Proair HFA] 1 - 2 puff IH PRN PRN 06/04/18 Cholecalciferol (Vitamin D3) [Vitamin D3 2000 unit Tablet] 2,000 unit PO BID 07/14 Doxycycline Hyclate [Vibramycin] 100 mg PO DAILY 06/04/18 Esomeprazole Magnesium [Nexium] 20 mg PO DAILY 06/04/18 Hydrochlorothiazide [Hydrodiuril 12.5 mg Capsule] 12.5 mg PO QAM 06/04/18 Ibandronate Sodium 150 mg PO .MONTHLY 06/04/18 Letrozole [Femara 2.5 Mg Tablet] 2.5 mg PO DAILY 06/04/18 Lisinopril [Prinivil 30 mg Tablet] 30 mg PO DAILY 06/04/18 Metformin HCl [Glucophage] 500 mg PO BID 06/04/18 Metoprolol Tartrate [Lopressor 50 mg Tablet] 50 mg PO BID 06/04/18 Simvastatin 20 mg PO QPM 06/04/18 Ketorolac Tromethamine [Toradol 10 mg Tablet] 10 mg PO Q6HP PRN #20 tablet 06/10 Allergies/Adverse Reactions: aspirin [From Percodan] Allergy (Verified 07/18/18 16:59) itching oxycodone HCl [From Percodan] Allergy (Verified 07/18/18 16:59) itching oxycodone terephthalate [From Percodan] Allergy (Verified 07/18/18 16:59) itching Review of Systems Review of Systems: As outlined in the HPI, others negative Physical Exam Vital Signs: Temp Pulse Resp BP Pulse Ox 98.0 F 57 L 14 121/45 L 99 07/19/18 00:18 07/19/18 00:18 07/19/18 00:18 07/19/18 00:18 07/19/18 00:18 Additional comments: General appearance: Well-developed, well-nourished, alert and cooperative, and appears to be in no acute distress Head: Normocephalic Eyes: PEERL, EOMI, vision is grossly intact. Ears: External auditory canal and tympanic membranes clear, hearing grossly intact. Nose: No nasal discharge. Throat: Oral cavity and pharynx normal. No inflammation, swelling, exudate or lesions. Neck: Neck supple, nontender without lymphadenopathy, masses or thyromegaly. Cardiac: Normal S1 and S2. No S3, S4 or murmurs. Rhythm is regular. There is no peripheral edema, cyanosis or pallor. Extremities are warm and well perfused. Capillary refill is less than 2 seconds. No carotid bruits. Lungs: Clear to auscultation and percussion without rales, rhonchi, wheezing or diminished breath sounds. Not using accessory muscles. Thorax, with a dressing over her right breast, did not let me take the dressing off. Abdomen: Positive bowel sounds. Soft. Nondistended, nontender. No guarding or rebound. No masses. No hepatosplenomegaly Extremities: No significant deformity or joint abnormality. No edema. Peripheral pulses intact. No varicosities. Neurological: Cranial nerves II through XII grossly intact. Strength and sensation symmetric and intact throughout. Reflexes 2+ throughout. Skin: Skin normal color, texture and turgor with no lesions or eruptions, warm and dry. Psychiatric: The mental examination revealed the patient was oriented to person , place, and time. The patient was able to demonstrate good judgment on recent , without hallucinations, abnormal affect or abnormal behaviors. Results Laboratory Results: 07/18/18 20:35 07/18/18 20:35 07/18/18 07/18/18 20:35 20:35 WBC 5.7 RBC 3.98 Hgb 13.9 Hct 38.8 MCV 97 MCH 34.9 H MCHC 35.8 RDW 12.9 Plt Count 202 Seg Neutrophils % 61.2 Lymphocytes % 27.8 Monocytes % 9.0 Eosinophils % 1.4 Basophils % 0.6 Absolute Neutrophils 3.5 Absolute Lymphocytes 1.6 Absolute Monocytes 0.5 Absolute Eosinophils 0.1 Absolute Basophils 0.0 Sodium 127.8 L Potassium 4.0 Chloride 90 L Carbon Dioxide 28 Anion Gap 10 BUN 8 Creatinine 0.60 Est GFR ( Amer) > 60 Est GFR (Non-Af Amer) > 60 Glucose 82 Calcium 9.7 Total Bilirubin 0.6 AST 45 H ALT 51 Alkaline Phosphatase 37 L C-Reactive Protein < 5.0 Total Protein 7.2 Albumin 4.6 Impressions: Breast Ultrasound 07/18/18 18:53 IMPRESSION: Abnormal fluid collection at the 12:00 position compatible with an abscess. Assessment & Plan - Diagnosis (1) Diabetes mellitus type 2 in nonobese Is this a current diagnosis for this admission?: Yes Plan: Apparently well controlled, will place the patient on Accu-Cheks every 6 hours, insulin lispro sliding scale and hypoglycemia protocol. Metformin on hold for now. (2) Hyponatremia Is this a current diagnosis for this admission?: Yes Plan: 127 with chloride 90, suspect dehydration, patient is not symptomatic. Will place the patient on normal saline running at 100 cc/h and reassess vitals in the morning. (3) Abscess of right breast Is this a current diagnosis for this admission?: Yes Plan: As per surgery Dr. Cannon - Time Time Spent: 30 to 50 Minutes
[2018-07-19] MEDS: PIPERACILLIN SODIUM/TAZOBACTAM 3.375 GM in NORMAL SALINE 100 ML IV SCH ×2 (03:00→09:40)
[2018-07-19 04:22] LABS: ABSOLUTE EOSINOPHILS # (AUTO) 0.1 10^3/uL (0.0-0.6); ABSOLUTE LYMPHOCYTES (AUTO) 1.2 10^3/uL (0.5-4.7); ABSOLUTE MONOCYTES (AUTO) 0.6 10^3/uL (0.1-1.4); ABSOLUTE NEUT (AUTO) 2.7 10^3/uL (1.7-8.2); BASOPHILS % (AUTO) 0.7 % (0-2); EOSINOPHILS % (AUTO) 1.4 % (0-6); HEMOGLOBIN 12.9 g/dL (12.0-15.5); LYMPHOCYTES % (AUTO) 26.7 % (13-45); MEAN CORPUSCULAR HEMOGLOBIN 34.6 pg (27.0-33.4); MEAN CORPUSCULAR HGB CONC 35.9 g/dL (32.0-36.0); MEAN CORPUSCULAR VOLUME 96 fl (80-97); MONOCYTES % (AUTO) 12.3 % (3-13); PLATELET COUNT 174 10^3/uL (150-450); RED BLOOD COUNT 3.73 10^6/uL (3.72-5.28); SEGMENTED NEUTROPHILS % (AUTO) 58.9 % (42-78); TOTAL CELLS COUNTED % (AUTO) 100 %; WHITE BLOOD COUNT 4.5 10^3/uL (4.0-10.5)
[2018-07-19 04:38] LABS: ANION GAP 8 (5-19); BLOOD UREA NITROGEN 11 mg/dL (7-20); CALCIUM 9.1 mg/dL (8.4-10.2); CARBON DIOXIDE 26 mmol/L (22-30); CHLORIDE 97 mmol/L (98-107); GLUCOSE 98 mg/dL (75-110); POTASSIUM 3.9 mmol/L (3.6-5.0)
[2018-07-19] MEDS: VANCOMYCIN HCL 1,000 MG in DEXTROSE 5%-WATER 250 ML IV SCH ×2 (06:19→10:32)
[2018-07-19] MEDS ORDERED: FENTANYL CITRATE INJ/PF 100 MCG/2 ML AMPUL ONE (07:58)
[2018-07-19] MEDS ORDERED: MIDAZOLAM 2 MG/2 ML INJ ONE (07:58)
[2018-07-19] MEDS ORDERED: PROPOFOL INJ 200 MG/20 ML VIAL IV ONE (07:59)
[2018-07-19] MEDS ORDERED: ACETAMINOPHEN 0 MG/0 ML RTUPB IV ONE (07:59)
[2018-07-19] MEDS ORDERED: ONDANSETRON HCL INJ/PF 4 MG/2 ML SDV ONE (07:59)
[2018-07-19] MEDS ORDERED: LIDOCAINE 1%/EPINEPHRINE INJ 20 ML VIAL ONE ×2 (08:25→08:26)
[2018-07-19] MEDS ORDERED: MEPERIDINE HCL/PF INJ 25 MG/1 ML DISP.SYRIN IV PRN (08:53)
[2018-07-19] MEDS ORDERED: PROMETHAZINE HCL INJ 25 MG/1 ML VIAL IV PRN (08:53)
[2018-07-19] MEDS ORDERED: DIPHENHYDRAMINE HCL 50 MG/ML VIAL IV PRN (08:53)
[2018-07-19] MEDS ORDERED: FENTANYL CITRATE INJ/PF 100 MCG/2 ML AMPUL IV PRN ×3 (08:53)
[2018-07-19] MEDS ORDERED: NEO/POLYMYX B SULF/DEXAMETH OPH OINTMENT 3.5 GM ONE (09:06)
[2018-07-19] MEDS ORDERED: NEOMY/BACITRAC ZN/POLY OINT 15 GM ONE (09:08)
--- NOTE | 2018-07-19 09:41 | Operative Report ---
Nonrecallable Operative Report DATE OF SURGERY: 07/19/18 PREOPERATIVE DIAGNOSIS: S/P right breast lumpectomy and SNL biopsy. Right breast surgical wound infection with abscess. Superficial right breast skin necrosis 1.5 cm in diameter POSTOPERATIVE DIAGNOSIS: same OPERATION: I&D of right breast abscess. Right breast skin sharp debridment down to subcutaneous tissue, 1.5 cm diameter SURGEON: KYLEIGH CANNON ANESTHESIA: LMAC - plus 30 mL 1% lidocaine TISSUE REMOVED OR ALTERED: right breast necrotic skin COMPLICATIONS: n/a ESTIMATED BLOOD LOSS: < 5 mL INTRAOPERATIVE FINDINGS: right breast lumpectomy cavity filled with cloudy fluid. superficial necrosis of the right breast skin at the injection site PROCEDURE: see dictation
--- NOTE | 2018-07-19 10:05 | OPERATIVE REPORT E ---
Operative Report NAME: MICHAEL HARMON : 1940 AGE: 77Y DATE OF SURGERY: 07/19/2018 ROOM: 210 PREOPERATIVE DIAGNOSIS: 1. STATUS POST RIGHT BREAST LUMPECTOMY. 2. RIGHT BREAST SURGICAL WOUND INFECTION. 3. RIGHT MASTITIS. 4. SUPERFICIAL NECROSIS OF SKIN OF RIGHT BREAST. POSTOPERATIVE DIAGNOSIS: 1. STATUS POST RIGHT BREAST LUMPECTOMY. 2. RIGHT BREAST SURGICAL WOUND INFECTION. 3. RIGHT MASTITIS. 4. SUPERFICIAL NECROSIS OF SKIN OF RIGHT BREAST. OPERATION: 1. Incision and drainage, right breast wound infection. 2. Sharp superficial debridement of breast skin down to subcutaneous tissue measuring 1.5 x 1.5 cm. SURGEON: KYLEIGH CANNON M.D. FIELD SECRETARY: None. ESTIMATED BLOOD LOSS: Minimal, less than 5 mL. COMPLICATIONS: None. ANESTHESIA: MAC, Provided by anesthesiologist. FLUIDS GIVEN: None available. DRAINS: None. INDICATIONS/FINDINGS: This is a 77-year-old female 1 month postop for a right breast lumpectomy and sentinel node biopsy who presented to the emergency room yesterday evening complaining of drainage from the lumpectomy wound. In addition, she presented with redness to the lower half of the right breast and skin necrosis of the methylene blue injection site of the right periareolar area, located at 12 o'clock, measuring 1.5 cm in diameter. A decision was made to admit the patient for antibiotics and to take the patient to surgery today for incision and drainage of the surgical wound, washout of the wound, as well as debridement of necrosis of the methylene blue injection site. Procedure, its benefits and complications explained to the patient. She understands the above and she decided to proceed. DESCRIPTION OF PROCEDURE: It was done in the operating room. The patient was placed in supine position and MAC anesthesia provided by the anesthesiologist. The right breast and chest were prepped and draped in usual fashion. The lumpectomy site was located about 3 finger breadths above the areolar-cutaneous border along the midclavicular line. The wound was opened sharply with a #15 blade along the lumpectomy wound and a large amount of cloudy fluid was obtained. This was aspirated and sent for aerobic and anaerobic cultures and gram stain. After this fluid was completely aspirated, the lumpectomy cavity was debrided with a curette until good bleeding was obtained. After this was accomplished, the area was irrigated with normal saline until clear and packed with triple antibiotic ointment and 1/2 packing strip. The area of skin necrosis located in the areolar-cutaneous border around the right midclavicular line was then sharply debrided down to subcutaneous tissue with a #15 blade until good bleeding tissue was obtained. The area was then irrigated with normal saline and covered with triple antibiotic ointment. The breast was then covered with 4 x 4s, ABD dressings and tape. The patient tolerated the procedure well and transferred to the recovery room in satisfactory condition. DICTATING PHYSICIAN: KYLEIGH CANNON M.D. [id number] PHY#: [id number] ID: [id number] JOB#: [id number] ACCT: [id number] cc:KYLEIGH CANNON M.D. > MTDD
[2018-07-19] MEDS ORDERED: VANCOMYCIN HCL 1,000 MG in DEXTROSE 5%-WATER 250 ML IV SCH ×2 (10:11→22:00)
[2018-07-19] MEDS ORDERED: NORMAL SALINE 1000 ML 1,000 ML IV PRN (10:11)
[2018-07-19] MEDS: ENOXAPARIN SODIUM INJ 40 MG/0.4 ML DISP.SYRIN SUBCUT SCH (10:18)
[2018-07-19] MEDS: NORMAL SALINE 1000 ML 1,000 ML IV PRN (10:19)
[2018-07-19] MEDS: FAMOTIDINE 20 MG TABLET PO SCH ×2 (11:01→21:14)
[2018-07-19] MEDS: PIPERACILLIN SODIUM/TAZOBACTAM 2.25 GM in NORMAL SALINE 50 ML IV SCH ×2 (12:20→17:03)
[2018-07-19] MEDS: HYDROCHLOROTHIAZIDE 25 MG TABLET PO SCH (14:56)
[2018-07-19] MEDS: LISINOPRIL 10 MG TABLET PO SCH (14:58)
[2018-07-19] MEDS: LETROZOLE 2.5 MG TABLET PO SCH ×2 (15:01→15:05)
[2018-07-19] MEDS: CHOLECALCIFEROL (D3) 1,000 UNIT TABLET PO SCH (17:04)
[2018-07-19] MEDS: SIMVASTATIN 10 MG TABLET PO SCH (17:05)
[2018-07-19] MEDS: METOPROLOL TARTRATE 50 MG TABLET PO SCH (17:05)
--- NOTE | 2018-07-19 17:07 | PDOC PROGRESS REPORT ---
Subjective Progress Note for:: 07/19/18 Subjective:: 77 y.o. F seen this morning on rounds S/P I&D of right breast abscess. Right breast skin sharp debridment down to subcutaneous tissue. Hospitalist Service consulted for diabetes and blood pressure management. The patient was asleep but arousable to verbal stimuli. She denies complaints at this time. Nursing staff does not verbalize any concerns. Reason For Visit: RIGHT BREAST LUMPECTOMY WOUND INFECTION AND RIGHT Physical Exam Vital Signs: Temp Pulse Resp BP Pulse Ox 98.4 F 55 L 18 125/58 L 100 07/19/18 15:33 07/19/18 15:33 07/19/18 15:33 07/19/18 15:33 07/19/18 15:33 Intake & Output 07/18/18 07/19/18 07/20/18 06:59 06:59 06:59 Intake Total 100 3165 Output Total 15 Balance 100 3150 Weight 62.7 kg General appearance: PRESENT: no acute distress, well-developed, well-nourished Head exam: PRESENT: atraumatic, normocephalic Eye exam: PRESENT: conjunctiva pink, EOMI, PERRLA. ABSENT: scleral icterus Ear exam: PRESENT: normal external ear exam Mouth exam: PRESENT: moist, tongue midline Neck exam: ABSENT: carotid bruit, JVD, lymphadenopathy, thyromegaly Respiratory exam: PRESENT: clear to auscultation kristin. ABSENT: rales, rhonchi, wheezes Cardiovascular exam: PRESENT: RRR. ABSENT: diastolic murmur, rubs, systolic murmur Pulses: PRESENT: normal dorsalis pedis pul Vascular exam: PRESENT: normal capillary refill GI/Abdominal exam: PRESENT: normal bowel sounds, soft. ABSENT: distended, guarding, mass, organolmegaly, rebound, tenderness Rectal exam: PRESENT: deferred Extremities exam: PRESENT: full ROM. ABSENT: calf tenderness, clubbing, pedal edema Neurological exam: PRESENT: alert, awake, oriented to person, oriented to place , oriented to time, oriented to situation Psychiatric exam: PRESENT: appropriate affect, normal mood Skin exam: PRESENT: dry, intact, warm. ABSENT: cyanosis, rash Results Laboratory Results: 07/19/18 04:13 07/19/18 04:13 07/18/18 07/18/18 07/19/18 20:35 20:35 04:13 WBC 5.7 4.5 RBC 3.98 3.73 Hgb 13.9 12.9 Hct 38.8 36.0 MCV 97 96 MCH 34.9 H 34.6 H MCHC 35.8 35.9 RDW 12.9 13.0 Plt Count 202 174 Seg Neutrophils % 61.2 58.9 Lymphocytes % 27.8 26.7 Monocytes % 9.0 12.3 Eosinophils % 1.4 1.4 Basophils % 0.6 0.7 Absolute Neutrophils 3.5 2.7 Absolute Lymphocytes 1.6 1.2 Absolute Monocytes 0.5 0.6 Absolute Eosinophils 0.1 0.1 Absolute Basophils 0.0 0.0 Sodium 127.8 L Potassium 4.0 Chloride 90 L Carbon Dioxide 28 Anion Gap 10 BUN 8 Creatinine 0.60 Est GFR ( Amer) > 60 Est GFR (Non-Af Amer) > 60 Glucose 82 Calcium 9.7 Total Bilirubin 0.6 AST 45 H ALT 51 Alkaline Phosphatase 37 L C-Reactive Protein < 5.0 Total Protein 7.2 Albumin 4.6 07/19/18 04:13 WBC RBC Hgb Hct MCV MCH MCHC RDW Plt Count Seg Neutrophils % Lymphocytes % Monocytes % Eosinophils % Basophils % Absolute Neutrophils Absolute Lymphocytes Absolute Monocytes Absolute Eosinophils Absolute Basophils Sodium 131.0 L Potassium 3.9 Chloride 97 L Carbon Dioxide 26 Anion Gap 8 BUN 11 Creatinine 0.73 Est GFR ( Amer) > 60 Est GFR (Non-Af Amer) > 60 Glucose 98 Calcium 9.1 Total Bilirubin AST ALT Alkaline Phosphatase C-Reactive Protein Total Protein Albumin Impressions: Breast Ultrasound 07/18/18 18:53 IMPRESSION: Abnormal fluid collection at the 12:00 position compatible with an abscess. Status: Imported from PACS Assessment & Plan - Diagnosis (1) Abscess of right breast Is this a current diagnosis for this admission?: Yes Plan: I&D of right breast abscess. Right breast skin sharp debridment down to subcutaneous tissue Primary plan per surgery (2) HTN (hypertension) Qualifiers: Hypertension type: essential hypertension Qualified Code(s): I10 - Essential (primary) hypertension Is this a current diagnosis for this admission?: Yes Plan: History of HTN Continue home dose anti-HTN (3) Diabetes Qualifiers: Diabetes mellitus type: type 2 Diabetes mellitus complication status: without complication Is this a current diagnosis for this admission?: Yes Plan: History of DM2 Home dose metformin on hold Accmagy Ontiveros SSI Check Hgb A1C in AM (4) Daily consumption of alcohol Is this a current diagnosis for this admission?: Yes - Time Time Spent with patient: 15-24 minutes Medications reviewed and adjusted accordingly: Yes Anticipated discharge: Home Within: within 24 hours - Inpatient Certification Based on my medical assessment, after consideration of the patient's comorbidities, presenting symptoms, or acuity I expect that the services needed warrant INPATIENT care.: Yes I certify that my determination is in accordance with my understanding of Medicare's requirements for reasonable and necessary INPATIENT services [42 CFR 412.3e].: Yes Medical Necessity: Risk of Complication if Not Cared For in Hospital - Plan Summary Plan Summary: PRIMARY PLAN PER SURGERY. INITIATED HOME DOSE MEDICATIONS EXCEPT PO METFORMIN - PLAN TO MANAGE DM2 WITH SSI
[2018-07-19] MEDS ORDERED: (PENDING PHARMACY ID) (Cholecalciferol (Vitamin D3) [Vitamin D3] 2,000 UNIT) PO SCH (18:00)
[2018-07-20] MEDS: PIPERACILLIN SODIUM/TAZOBACTAM 2.25 GM in NORMAL SALINE 50 ML IV SCH ×4 (00:14→17:03)
[2018-07-20] MEDS ORDERED: LANSOPRAZOLE 30 MG TAB.RAP.DR PO SCH (06:00)
[2018-07-20 06:27] LABS: ABSOLUTE LYMPHOCYTES (AUTO) 0.8 10^3/uL (0.5-4.7); ABSOLUTE MONOCYTES (AUTO) 0.4 10^3/uL (0.1-1.4); ABSOLUTE NEUT (AUTO) 2.8 10^3/uL (1.7-8.2); BASOPHILS % (AUTO) 0.8 % (0-2); EOSINOPHILS % (AUTO) 0.9 % (0-6); HEMATOCRIT 36.9 % (36.0-47.0); HEMOGLOBIN 13.3 g/dL (12.0-15.5); LYMPHOCYTES % (AUTO) 19.6 % (13-45); MEAN CORPUSCULAR HEMOGLOBIN 35.2 pg (27.0-33.4); MEAN CORPUSCULAR HGB CONC 35.9 g/dL (32.0-36.0); MEAN CORPUSCULAR VOLUME 98 fl (80-97); MONOCYTES % (AUTO) 9.7 % (3-13); PLATELET COUNT 184 10^3/uL (150-450); RED BLOOD COUNT 3.76 10^6/uL (3.72-5.28); RED CELL DISTRIBUTION WIDTH 13.2 % (11.5-14.0); TOTAL CELLS COUNTED % (AUTO) 100 %; WHITE BLOOD COUNT 4.1 10^3/uL (4.0-10.5)
[2018-07-20 06:46] LABS: ANION GAP 8 (5-19); BLOOD UREA NITROGEN 13 mg/dL (7-20); CALCIUM 9.3 mg/dL (8.4-10.2); CARBON DIOXIDE 28 mmol/L (22-30); CHLORIDE 96 mmol/L (98-107); GLUCOSE 105 mg/dL (75-110); POTASSIUM 4.7 mmol/L (3.6-5.0); SODIUM 131.6 mmol/L (137-145)
[2018-07-20] MEDS: METOPROLOL TARTRATE 50 MG TABLET PO SCH ×2 (07:14→17:01)
--- NOTE | 2018-07-20 09:21 | PDOC PROGRESS REPORT ---
Subjective Progress Note for:: 07/20/18 Subjective:: No complaints; eating; no fever; ambulating. Reason For Visit: RIGHT BREAST LUMPECTOMY WOUND INFECTION AND RIGHT Physical Exam Vital Signs: Temp Pulse Resp BP Pulse Ox 98.2 F 54 L 15 137/82 H 98 07/20/18 07:51 07/20/18 07:51 07/20/18 07:51 07/20/18 07:51 07/20/18 07:51 Intake & Output 07/19/18 07/20/18 07/21/18 06:59 06:59 06:59 Intake Total 100 4165 Output Total 15 Balance 100 4150 Weight 62.7 kg 62.5 kg General appearance: PRESENT: no acute distress Skin exam: PRESENT: other - Right breast examined. Operative sites including areola, as well as lumpectomy site clean, no foul smell or drainage; wound cavity packing removed; no pus. Early granulation tissue in situ. Results Laboratory Results: 07/20/18 04:17 07/20/18 04:17 07/20/18 07/20/18 04:17 04:17 WBC 4.1 RBC 3.76 Hgb 13.3 Hct 36.9 MCV 98 H MCH 35.2 H MCHC 35.9 RDW 13.2 Plt Count 184 Seg Neutrophils % 69.0 Lymphocytes % 19.6 Monocytes % 9.7 Eosinophils % 0.9 Basophils % 0.8 Absolute Neutrophils 2.8 Absolute Lymphocytes 0.8 Absolute Monocytes 0.4 Absolute Eosinophils 0.0 Absolute Basophils 0.0 Sodium 131.6 L Potassium 4.7 Chloride 96 L Carbon Dioxide 28 Anion Gap 8 BUN 13 Creatinine 0.79 Est GFR ( Amer) > 60 Est GFR (Non-Af Amer) > 60 Glucose 105 Calcium 9.3 Impressions: Breast Ultrasound 07/18/18 18:53 IMPRESSION: Abnormal fluid collection at the 12:00 position compatible with an abscess. Assessment & Plan - Diagnosis (1) Abscess of right breast Is this a current diagnosis for this admission?: Yes Plan: Impression: 1 day status post right breast debridement including sharp debridement of eschar at the areola border, and evacuation of lumpectomy site abscess, doing well; minimal peripheral erythema. Recommendations: 1. Continue intravenous antibiotics today; can consolidate to Zosyn only 2. Follow-up wound cultures 3. Instructed patient on dressing changes which can be performed by her and her family; she is comfortable with that plan 4. Anticipate discharge home later today. Her pain is managed appropriately. 5. Anticipate follow-up with [facility] approximately 4 days.
[2018-07-20] MEDS: HYDROCHLOROTHIAZIDE 25 MG TABLET PO SCH (10:33)
[2018-07-20] MEDS: ENOXAPARIN SODIUM INJ 40 MG/0.4 ML DISP.SYRIN SUBCUT SCH (10:34)
[2018-07-20] MEDS: FAMOTIDINE 20 MG TABLET PO SCH (10:35)
[2018-07-20] MEDS: LISINOPRIL 10 MG TABLET PO SCH (10:36)
[2018-07-20] MEDS: CHOLECALCIFEROL (D3) 1,000 UNIT TABLET PO SCH ×2 (10:39→17:02)
[2018-07-20 16:59] VITALS: BP 127/70
[2018-07-20] MEDS: SIMVASTATIN 10 MG TABLET PO SCH (17:02)
--- NOTE | 2018-07-20 17:20 | PDOC PROGRESS REPORT ---
Subjective Progress Note for:: 07/20/18 Subjective:: 77 y.o. F seen this morning on rounds S/P I&D of right breast abscess. Right breast skin sharp debridment down to subcutaneous tissue. Hospitalist Service consulted for diabetes and blood pressure management. The patient was asleep but arousable to verbal stimuli. She denies complaints at this time. Nursing staff does not verbalize any concerns. Reason For Visit: RIGHT BREAST LUMPECTOMY WOUND INFECTION AND RIGHT Physical Exam Vital Signs: Temp Pulse Resp BP Pulse Ox 98.4 F 55 L 18 134/71 H 98 07/20/18 15:43 07/20/18 15:43 07/20/18 15:43 07/20/18 15:43 07/20/18 15:43 Intake & Output 07/19/18 07/20/18 07/21/18 06:59 06:59 06:59 Intake Total 100 4215 50 Output Total 15 Balance 100 4200 50 Weight 62.7 kg 62.5 kg General appearance: PRESENT: no acute distress, well-developed, well-nourished Head exam: PRESENT: atraumatic, normocephalic Eye exam: PRESENT: conjunctiva pink, EOMI, PERRLA. ABSENT: scleral icterus Ear exam: PRESENT: normal external ear exam Mouth exam: PRESENT: moist, tongue midline Neck exam: ABSENT: carotid bruit, JVD, lymphadenopathy, thyromegaly Respiratory exam: PRESENT: clear to auscultation kristin. ABSENT: rales, rhonchi, wheezes Cardiovascular exam: PRESENT: RRR. ABSENT: diastolic murmur, rubs, systolic murmur Pulses: PRESENT: normal dorsalis pedis pul Vascular exam: PRESENT: normal capillary refill GI/Abdominal exam: PRESENT: normal bowel sounds, soft. ABSENT: distended, guarding, mass, organolmegaly, rebound, tenderness Rectal exam: PRESENT: deferred Extremities exam: PRESENT: full ROM. ABSENT: calf tenderness, clubbing, pedal edema Neurological exam: PRESENT: alert, awake, oriented to person, oriented to place , oriented to time, oriented to situation, CN II-XII grossly intact. ABSENT: motor sensory deficit Psychiatric exam: PRESENT: appropriate affect, normal mood. ABSENT: homicidal ideation, suicidal ideation Skin exam: PRESENT: dry, intact, warm, other - abscess to R breast. recently I&D 'd by surgery Results Laboratory Results: 07/20/18 04:17 07/20/18 04:17 07/20/18 07/20/18 04:17 04:17 WBC 4.1 RBC 3.76 Hgb 13.3 Hct 36.9 MCV 98 H MCH 35.2 H MCHC 35.9 RDW 13.2 Plt Count 184 Seg Neutrophils % 69.0 Lymphocytes % 19.6 Monocytes % 9.7 Eosinophils % 0.9 Basophils % 0.8 Absolute Neutrophils 2.8 Absolute Lymphocytes 0.8 Absolute Monocytes 0.4 Absolute Eosinophils 0.0 Absolute Basophils 0.0 Sodium 131.6 L Potassium 4.7 Chloride 96 L Carbon Dioxide 28 Anion Gap 8 BUN 13 Creatinine 0.79 Est GFR ( Amer) > 60 Est GFR (Non-Af Amer) > 60 Glucose 105 Calcium 9.3 07/19/18 02:15 Nasophary (Mrsa Only) MRSA Surveillance Culture - Final NO MRSA RECOVERED Impressions: Breast Ultrasound 07/18/18 18:53 IMPRESSION: Abnormal fluid collection at the 12:00 position compatible with an abscess. Status: Imported from PACS Assessment & Plan - Diagnosis (1) Abscess of right breast Is this a current diagnosis for this admission?: Yes Plan: I&D of right breast abscess. Right breast skin sharp debridment down to subcutaneous tissue Primary plan per surgery (2) HTN (hypertension) Qualifiers: Hypertension type: essential hypertension Qualified Code(s): I10 - Essential (primary) hypertension Is this a current diagnosis for this admission?: Yes Plan: History of HTN Continue home dose anti-HTN (3) Diabetes Qualifiers: Diabetes mellitus type: type 2 Diabetes mellitus complication status: without complication Is this a current diagnosis for this admission?: Yes Plan: History of DM2 Hgb A1C 5.6 Home dose metformin on hold Accucheks ACHS Humalog SSI Patient has not required insulin for 24 hours (4) Daily consumption of alcohol Is this a current diagnosis for this admission?: Yes - Time Time Spent with patient: 15-24 minutes Medications reviewed and adjusted accordingly: Yes Anticipated discharge: Home Within: within 24 hours - Inpatient Certification Based on my medical assessment, after consideration of the patient's comorbidities, presenting symptoms, or acuity I expect that the services needed warrant INPATIENT care.: Yes I certify that my determination is in accordance with my understanding of Medicare's requirements for reasonable and necessary INPATIENT services [42 CFR 412.3e].: Yes Medical Necessity: Risk of Complication if Not Cared For in Hospital - Plan Summary Plan Summary: GRATEFUL FOR THE OPPORTUNITY TO PARTICIPATE IN THE CARE OF THIS PATIENT. RESPECTFULLY SIGNING OFF.
--- NOTE | 2018-07-27 10:00 | DISCHARGE SUMMARY E ---
Discharge Summary NAME: MICHAEL HARMON : 1940 AGE: 77Y ADMITTED: 07/18/2018 DISCHARGED: 07/20/2018 REASON FOR ADMISSION: Right breast infection. SUMMARY OF HOSPITALIZATION: The patient is a 77-year-old white female who underwent right breast lumpectomy and sentinel node biopsy approximately 1 month prior. She presented to the Emergency Department complaining of right breast pain and drainage. She was found to have an infection of her right breast lumpectomy site. She was admitted to the surgical service for definitive management. The patient was admitted to the surgery service, started on broad-spectrum IV antibiotics, taken to the operating room the following day, and underwent incision and drainage of packing by Dr. Castle. Patient had wound packing placed, and subsequently removed. Wound cultures grew no infecting organisms. By the second postoperative day she was felt to have received maximum benefit of hospitalization and was discharged home. FINAL DIAGNOSIS: Right breast lumpectomy surgical site infection, status post operative drainage. DISPOSITION: The patient will be discharged home in the care of family on dressing change. She is on p.o. antibiotics, Tylenol, and Motrin. She will follow up with Dr. Cox at [facility] in approximately 1 week. DICTATING PHYSICIAN: NIDA COX M.D. [id number] PHY#: [id number] ID: [id number] JOB#: [id number] ACCT: [id number] cc:Heidy DALEY M.D. >
== END 2018-07-20 19:00 | disposition home or self-care (01) | DRG 857 ==
LOC: ER 16:56 → EH 20:25 → 2N 23:48
PROVIDERS: ADMIT Surgery; ATTEND Surgery
PROC: 0H9T3ZX Drainage of Right Breast, Percutaneous Approach, Diagnostic (ICD-10-PCS; 2018-07-19)
PROC: 0HBT0ZZ Excision of Right Breast, Open Approach (ICD-10-PCS; principal; 2018-07-19 08:30)
DX: T81.4XXA Infection following a procedure, initial encounter (principal); E87.1 Hypo-osmolality and hyponatremia; N61.1 Abscess of the breast and nipple; Y84.8 Other medical procedures as the cause of abnormal reaction of the patient, or of later complication, without mention of misadventure at the time of the procedure; E78.00 Pure hypercholesterolemia, unspecified; I10 Essential (primary) hypertension; E11.9 Type 2 diabetes mellitus without complications; K21.9 Gastro-esophageal reflux disease without esophagitis; M19.90 Unspecified osteoarthritis, unspecified site; C50.911 Malignant neoplasm of unspecified site of right female breast; F17.210 Nicotine dependence, cigarettes, uncomplicated; Z17.0 Estrogen receptor positive status [ER+]; E86.0 Dehydration; Z90.710 Acquired absence of both cervix and uterus; Z79.899 Other long term (current) drug therapy; Z88.6 Allergy status to analgesic agent; Z83.3 Family history of diabetes mellitus
CPT/HCPCS: 36415; 400; 76642; 80048; 80053; 82962; 83036; 85025; 85652; 86140; 87040; 87070; 87075; 87205; 99285; J0131; J1650; J2250; J2405; J2543; J2704; J3010; J3370; J3490; J7060

== ENCOUNTER → 2018-09-16 | Outpatient (CLI) | payer MEDICARE, OTHER ==
--- NOTE | 2018-09-16 13:53 | WOMENS IMAGING REPORT ---
EXAM DESCRIPTION: BONE DENSITY HIP/SPINE COMPLETED DATE/TIME: 09/16/2018 1:43 pm REASON FOR STUDY: BONE DENSITY TEST/M81.0 M81.0 AGE-RELATED OSTEOPOROSIS W/O CURRENT PATHOLOGICAL F RAC COMPARISON: Multiple studies dating back to 08/13/2006 TECHNIQUE: Dual-Energy X-ray Absorptiometry (DEXA) of the AP Spine and Hip. LIMITATIONS: None. FINDINGS: LUMBAR SPINE: The bone mineral density (BMD) measured from L1-L4 in the AP projection correlates with a T-score of 0.2, which is normal as defined by the World Health Organization. HIP: The bone mineral density (BMD) measured in the left hip correlates with a T-score of -1.7 in the femo ral neck, which is osteopenia as defined by the World Health Organization. IMPRESSION: 1. LUMBAR SPINE: Normal 2. HIP: Osteopenia COMMENT: The World Health Organization defines low BMD as follows: T-score: Normal: Greater than -1.0 Osteopenia: Between -1.0 and -2.5 Osteoporosis: Less than -2.5 without fractures Established osteoporosis: Less than -2.5 with fractures In general, you may wish to consider: Diagnosis Treatment Follow-up DEXA Normal BMD Prevention 2-3 years Osteopenia Prevention/Therapy 1-2 years Osteoporosis Therapy Yearly TECHNICAL DOCUMENTATION: JOB ID: [id number]- All Rights Reserved Reading location - IP/workstation name: [email or web address]
== END ==
LOC: WI 12:45
PROVIDERS: ATTEND Internal Medicine Hematology & Oncology
DX: M81.0 Age-related osteoporosis without current pathological fracture (principal)
CPT/HCPCS: 77080

== ENCOUNTER → 2018-11-16 | Outpatient (CLI) | payer MEDICARE, OTHER ==
[2018-11-16 13:37] LABS: ABSOLUTE EOSINOPHILS # (AUTO) 0.1 10^3/uL (0.0-0.6); ABSOLUTE LYMPHOCYTES (AUTO) 1.6 10^3/uL (0.5-4.7); ABSOLUTE MONOCYTES (AUTO) 0.6 10^3/uL (0.1-1.4); ABSOLUTE NEUT (AUTO) 3.4 10^3/uL (1.7-8.2); BASOPHILS % (AUTO) 0.4 % (0-2); EOSINOPHILS % (AUTO) 0.9 % (0-6); HEMATOCRIT 37.4 % (36.0-47.0); HEMOGLOBIN 13.3 g/dL (12.0-15.5); LYMPHOCYTES % (AUTO) 27.8 % (13-45); MEAN CORPUSCULAR HEMOGLOBIN 33.9 pg (27.0-33.4); MEAN CORPUSCULAR HGB CONC 35.6 g/dL (32.0-36.0); MEAN CORPUSCULAR VOLUME 95 fl (80-97); MONOCYTES % (AUTO) 10.5 % (3-13); PLATELET COUNT 173 10^3/uL (150-450); RED BLOOD COUNT 3.94 10^6/uL (3.72-5.28); RED CELL DISTRIBUTION WIDTH 13.4 % (11.5-14.0); SEGMENTED NEUTROPHILS % (AUTO) 60.4 % (42-78); TOTAL CELLS COUNTED % (AUTO) 100 %; WHITE BLOOD COUNT 5.6 10^3/uL (4.0-10.5)
== END ==
LOC: OD 12:47
PROVIDERS: ATTEND Radiology Radiation Oncology
DX: C50.411 Malignant neoplasm of upper-outer quadrant of right female breast (principal)
CPT/HCPCS: 36415; 85025

== ENCOUNTER → 2019-08-05 | Outpatient (CLI) | payer MEDICARE, OTHER ==
--- NOTE | 2019-08-05 15:16 | WOMENS IMAGING REPORT ---
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 Additional right breast 90 mediolateral view and right breast compression magnification views of the lumpectomy site Read with the assistance of CAD: .[facility] Golf Cart Attendant Version 9.2 LIMITATIONS: None. FINDINGS: RIGHT BREAST MASSES: No suspicious masses. CALCIFICATIONS: No new or suspicious calcifications. ARCHITECTURAL DISTORTION: Postsurgical changes right breast 12 o'clock position. DEVELOPING DENSITY: None. ASYMMETRY: None noted. OTHER: Diffuse right breast skin thickening post radiation therapy LEFT BREAST MASSES: No suspicious masses. CALCIFICATIONS: No new or suspicious calcifications. ARCHITECTURAL DISTORTION: None. DEVELOPING DENSITY: None. ASYMMETRY: None noted. OTHER: No other significant finding. IMPRESSION: Post therapeutic changes right breast. No mammographic evidence for malignancy bilatera lly. BREAST DENSITY: b. There are scattered areas of fibroglandular density. BIRAD: ASSESSMENT: 2 Benign findings. RECOMMENDATION: RECOMMENDED FOLLOW UP: Please continue right breast diagnostic, left breast screenin g mammography in July 2020. Consider bilateral tomosynthesis SPECIFIC INTERVENTION/IMAGING/CONSULTATION RECOMMENDED:No additional intervention/ imaging/consultati on needed at this time. COMMUNICATION:Patient notified by letter COMMENT: The patient has been notified of the results by letter per MQSA requirements. Additional no tification policies are in place for contacting patient with suspicious or incomplete findings. Quality ID #225: The [employer] recommends an annual screening mammogram for women aged 40 years or over. This facility utilizes a reminder system to ensure that all patients receive reminder letters, and/or direct phone calls for appointments. This includes reminders for routine scr eening mammograms, diagnostic mammograms, or other Breast Imaging Interventions when appropriate. Th is patient will be placed in the appropriate reminder system. TECHNICAL DOCUMENTATION: FINDING NUMBER: (1) ASSESSMENT: (1) JOB ID: [id number] [employer]- All Rights Reserved Reading location - IP/workstation name: [email or web address]
== END ==
LOC: WI 12:15
PROVIDERS: ATTEND Nurse Practitioner Family
DX: C50.811 Malignant neoplasm of overlapping sites of right female breast (principal)
CPT/HCPCS: 77066

== ENCOUNTER 2019-08-25 08:28 | Day surgery (SDC) | payer MEDICARE, OTHER ==
[2019-08-18 09:49] LABS: HEMATOCRIT 40.4 % (36.0-47.0); HEMOGLOBIN 14.3 g/dL (12.0-15.5); MEAN CORPUSCULAR HEMOGLOBIN 34.7 pg (27.0-33.4); MEAN CORPUSCULAR HGB CONC 35.5 g/dL (32.0-36.0); MEAN CORPUSCULAR VOLUME 98 fl (80-97); PLATELET COUNT 191 10^3/uL (150-450); RED BLOOD COUNT 4.13 10^6/uL (3.72-5.28); RED CELL DISTRIBUTION WIDTH 13.1 % (11.5-14.0); WHITE BLOOD COUNT 5.1 10^3/uL (4.0-10.5)
--- NOTE | 2019-08-18 19:00 | EKG REPORT ---
SEVERITY:- NORMAL ECG - SINUS RHYTHM : Confirmed by: Joan Servin MD 18-Aug-2019 18:59:42
[~2019-08-25 08:28] MED LIST changes: +ACETAMINOPHEN 325 MG TABLET PO PRN; -CEFAZOLIN 1 GM/D5W RTU 1 GM/50 ML RTUPB IV PRN; +LACTATED RINGERS 1000 ML IV PRN; +LIDOCAINE 0.5% INJ-PF (5 MG/ML) 50 ML SDV SUBCUT PRN; -LIDOCAINE 4% TRANSPARENT DRESSING 5 GM KIT TP PRN; -RINGERS SOLUTION,LACTATED 1,000 ML IV PRN
[2019-08-25] MEDS ORDERED: PROPOFOL INJ 200 MG/20 ML VIAL IV ONE (09:56)
[2019-08-25] MEDS ORDERED: DIPHENHYDRAMINE HCL 50 MG/ML VIAL IV PRN ×2 (10:39→11:41)
[2019-08-25] MEDS ORDERED: MEPERIDINE HCL/PF INJ 25 MG/1 ML DISP.SYRIN IV PRN (10:39)
[2019-08-25] MEDS ORDERED: PROMETHAZINE HCL INJ 25 MG/1 ML VIAL IV PRN (10:39)
--- NOTE | 2019-08-25 11:16 | Discharge Summary ---
Discharge Summary (SDC) - Discharge Final Diagnosis: 1. Personal history of breast cancer 2. Multiple colon polyps 3. Internal hemorrhoids Date of Surgery: 08/25/19 Discharge Date: 08/25/19 Condition: Good Treatment or Instructions: [address] [address] POST ENDOSCOPY DISCHARGE INSTRUCTIONS 1. Diet: Start clear liquids that a regular diet as tolerated. 2. Resume all preoperative medications. All oral anticoagulants and aspirins can be resumed 24 hours after procedure. 3. If a polypectomy was performed some bleeding per rectum may occur. This should stop within 3 days. If not, please contact the office. 4. If you had a colonoscopy you may experience some bloating and delayed return of normal bowel function for several days, your regular bowel movement pattern should resume within a week. 5. Please contact [facility] at to make an appointment with Dr. Cox for 1 to 3 weeks following procedure. 6. If you have any questions or concerns regarding your care,treatment plan or follow up, please contact our office. 7. Per clinical guidelines we recommend you undergo a repeat colonoscopy in 3-5 years. Referrals: WENDY GODFREY MD [Primary Care Provider] - Discharge Diet: As Tolerated Discharge Activity: Activity As Tolerated Home Care Assistance: None Needed Report the Following to Your Physician Immediately: Shortness of Breath, Increase in Pain, Signs of Hyperglycemia, Fever over 101 Degrees
--- NOTE | 2019-08-25 11:19 | Operative Report ---
Operative Report DATE OF SURGERY: 08/25/19 PREOPERATIVE DIAGNOSIS: 1. Personal history of breast cancer. 2. Screening f or colorectal carcinoma POSTOPERATIVE DIAGNOSIS: Same with. 1. Internal hemorrhoids. 2. Multiple colonic and rectal polyps OPERATION: 1. Total colonoscopy to cecum with photodocumentation. 2. Hot snare polypectomies of cecal polyps x2, left colon polyp x1 and mid rectal polyp x1 SURGEON: NIDA BROWN ANESTHESIA: LMAC TISSUE REMOVED OR ALTERED: Multiple polyps ESTIMATED BLOOD LOSS: Patient INTRAOPERATIVE FINDINGS: See below PROCEDURE: Obtaining informed consent the patient was taken from the preoperative holding area to the main endoscopy suite where monitoring devices were attached to the patient. Plan and surgical timeout were conducted The patient was placed in the left lateral decubitus position with knees to chest. A perianal examination was performed. There was no visible or palpable anorectal pathology. Sphincter tone was felt to be normal. The flexible adult colonoscope was advanced through the anal rectal canal, all the way to the cecum. Visualization of the cecum was achieved and the ileocecal valve, the appendiceal orifice and transillumination of the anterior abdominal wall were all confirmed. This was an excellent study on the well-prepped bowel. The colonoscope was withdrawn slowly and methodically checked and the mucosa carefully. There was no evidence of tumor, stricture, bleeding; Multiple small, slightly pedunculated polyps including cecum x2, left colon x1, and mid rectum x1. All 4 polyps were removed using a hot snare device, medium strength with specimens were retrieved, and labeled as above, and submitted in containers A, B, and C. Post polypectomy sites no evidence of bleeding. There was no evidence of diverticuloses. The scope was slowly withdrawn through the anal rectal canal. Complete visualization of the rectum was achieved with photodocumentation. Internal hemorrhoids were noted, not thrombosed. The scope was withdrawn to the patient's anus. The patient tolerated the procedure well and was taken to the recovery area in stable condition. Surveillance guidelines, patient be appropriate for follow-up colonoscopy in 3 to 5 years depending upon the final path report.
[2019-08-25 12:36] VITALS: BP 175/88
== END 2019-08-25 12:20 | disposition home or self-care (01) ==
LOC: OROUT 08:28
PROVIDERS: ATTEND Surgery
DX: Z12.11 Encounter for screening for malignant neoplasm of colon (principal); D12.2 Benign neoplasm of ascending colon; D12.6 Benign neoplasm of colon, unspecified; D12.8 Benign neoplasm of rectum; K64.8 Other hemorrhoids; I10 Essential (primary) hypertension; E11.9 Type 2 diabetes mellitus without complications; F17.210 Nicotine dependence, cigarettes, uncomplicated; Z79.84 Long term (current) use of oral hypoglycemic drugs; C50.911 Malignant neoplasm of unspecified site of right female breast; Z79.899 Other long term (current) drug therapy
CPT/HCPCS: 45385; 93005; 36415 ×2; 82962; 84132; 85027; 88305 ×2; 93010; J2704; 811

== ENCOUNTER 2020-06-20 10:32 | Day surgery (SDC) | payer MEDICARE, OTHER ==
[~2020-06-20 10:32] MED LIST changes: -ACETAMINOPHEN 325 MG TABLET PO PRN; +BUPIVACAINE HCL 0.75% INJ/PF (7.5 MG/1 ML) 10 ML SDV OS PRN; +CHONDR SU A NA/HYALUR INTRAOC KIT (SURGICARE) ONE; +EPINEPHRINE INJ/PF 1 MG/1 ML AMPULE ONE; +FENTANYL CITRATE INJ/PF 100 MCG/2 ML AMPUL ONE; +KETOROLAC TROMETHAMINE 0.45% 4 DROP/0.4 ML DROPERETTE OS PRN; -LACTATED RINGERS 1000 ML IV PRN; -LIDOCAINE 0.5% INJ-PF (5 MG/ML) 50 ML SDV SUBCUT PRN; +LIDOCAINE 1% INJ-PF (10 MG/ML) 30 ML SDV ONE; +LIDOCAINE 1%/PHENYLEPHRINE 1.5% 0.8 ML SYRINGE ONE; +LIDOCAINE 4% INJ/PF (40 MG/ML) 5 ML AMPUL OS PRN; +MIDAZOLAM 2 MG/2 ML INJ ONE; +ONDANSETRON HCL INJ/PF 4 MG/2 ML SDV ONE
[2020-06-20] MEDS: TROPICAMIDE 1% OPH SOLN 15 ML OS PRN ×3 (10:55→11:15)
[2020-06-20] MEDS: TETRACAINE HCL 0.5% OPH SOLN 4 ML OS PRN ×3 (10:55→11:39)
[2020-06-20] MEDS: BESIFLOXACIN HCL 0.6% OPH SUSP 5 ML BOTTLE OS PRN ×4 (10:55→12:09)
[2020-06-20] MEDS: CYCLOPENTOLATE 0.2%/PHENYLEPHRINE 1% OPH SOLN 2 ML OS PRN ×3 (10:55→11:15)
[2020-06-20] MEDS: PREDNISOLONE ACETATE 1% OPH SUSP 5 ML OS PRN ×2 (12:09)
[2020-06-20] MEDS: DORZOLAMIDE HCL 2%/TIMOLOL MALEAT 0.5% OPH SOLN 10 ML OS PRN ×2 (12:09)
--- NOTE | 2020-06-20 12:23 | Operative Report ---
Operative Report-[facility] Operative Report: DATE OF SURGERY: 06/20/2020 PREOPERATIVE DIAGNOSIS: CATARACT, LEFT EYE. POSTOPERATIVE DIAGNOSIS: CATARACT, LEFT EYE. PROCEDURE PERFORMED: PHACOEMULSIFICATION WITH POSTERIOR CHAMBER INTRAOCULAR LENS, LEFT EYE. Intraocular Lens Model : ZCBOO 23.5 Total Phaco Time: 13.9 CDE SURGEON: ANYA BARCLAY MD ANESTHESIA: TOPICAL WITH MAC. INDICATIONS FOR SURGERY: Difficultly driving at night PROCEDURE: The patient was brought to the Operating Room and placed on the operative table. Following tetracaine drops, topical anesthesia was administered. This consisted of instrument wipe pledgets soaked in a solution of 4% Xylocaine mixed with 0.75% Marcaine in a 1:2 ratio. A 2 x 1 cm pledget was placed in the superior fornix. A 1 x 1 cm pledget was placed in the inferior fornix. The eye was patched shut for 5 minutes. The patch was removed. The eye was sterilely prepped and draped in the usual manner. Lid speculum was placed in the eye. The pledgets were removed. 4-0 black silk sutures were placed around the superior and the inferior rectus muscles to be used as traction. A conjunctival peritomy was made at the 10 o'clock position. Hemostasis was obtained with bipolar cautery. A posterior limbal groove was created using a crescent knife and dissected anteriorly towards the cornea. A sharp point blade was used to create a paracentesis site at the 2 o'clock position. 0.2 cc non preserved Lidocaine with phenylephrine was injected into the anterior chamber. A 2.4 mm keratome was used to enter the anterior chamber through the groove. Viscoelastic was injected into the anterior chamber. An anterior capsulotomy was performed using Utrata forceps in a capsulorrhexis fashion. Hydrodissection and hydrodelineation were performed. Phacoemulsification was performed in [id number] technique. Following this, the I/A unit was used to remove residual cortex. Viscoelastic was injected into the capsular bag. The Intraocular lens was placed in the capsular bag. The I/A unit was used to remove residual viscoelastic. The wound was seen to be watertight under high and low pressure, and no sutures were placed. The intraocular lens was well centered. The pressure was adjusted in the eye to normal pressure. The 4-0 black silk sutures and lid speculum were removed. The eye was shielded after Besivance,prednisolone, and Cosopt drops were placed. The patient tolerated the procedure well and was sent to the Recovery Room in good condition.
== END 2020-06-20 12:59 | disposition home or self-care (01) ==
LOC: SC 10:32
PROVIDERS: ATTEND Ophthalmology
DX: H25.13 Age-related nuclear cataract, bilateral (principal); H57.03 Miosis; Z79.899 Other long term (current) drug therapy; Z79.84 Long term (current) use of oral hypoglycemic drugs; E11.9 Type 2 diabetes mellitus without complications; I10 Essential (primary) hypertension; E78.00 Pure hypercholesterolemia, unspecified; F17.210 Nicotine dependence, cigarettes, uncomplicated
CPT/HCPCS: 82962; 66984; V2632; J2250; J3490 ×2; J0171; J3010; J2405; 142

== ENCOUNTER 2020-07-18 09:55 | Day surgery (SDC) | payer MEDICARE, OTHER ==
[~2020-07-18 09:55] MED LIST changes: +BUPIVACAINE HCL 0.75% INJ/PF (7.5 MG/1 ML) 10 ML SDV OD PRN; -BUPIVACAINE HCL 0.75% INJ/PF (7.5 MG/1 ML) 10 ML SDV OS PRN; -FENTANYL CITRATE INJ/PF 100 MCG/2 ML AMPUL ONE; +KETOROLAC TROMETHAMINE 0.45% 4 DROP/0.4 ML DROPERETTE OD PRN; -KETOROLAC TROMETHAMINE 0.45% 4 DROP/0.4 ML DROPERETTE OS PRN; +LIDOCAINE 4% INJ/PF (40 MG/ML) 5 ML AMPUL OD PRN; -LIDOCAINE 4% INJ/PF (40 MG/ML) 5 ML AMPUL OS PRN; -MIDAZOLAM 2 MG/2 ML INJ ONE; -ONDANSETRON HCL INJ/PF 4 MG/2 ML SDV ONE
[2020-07-18] MEDS: TETRACAINE HCL 0.5% OPH SOLN 4 ML OD PRN ×3 (10:26→11:00)
[2020-07-18] MEDS: BESIFLOXACIN HCL 0.6% OPH SUSP 5 ML BOTTLE OD PRN ×5 (10:27→11:24)
[2020-07-18] MEDS: TROPICAMIDE 1% OPH SOLN 15 ML OD PRN ×3 (10:27→10:52)
[2020-07-18] MEDS: CYCLOPENTOLATE 0.2%/PHENYLEPHRINE 1% OPH SOLN 2 ML OD PRN ×3 (10:27→10:53)
[2020-07-18] MEDS ORDERED: MIDAZOLAM 2 MG/2 ML INJ ONE (10:49)
[2020-07-18] MEDS: DORZOLAMIDE HCL 2%/TIMOLOL MALEAT 0.5% OPH SOLN 10 ML OD PRN ×3 (11:23→11:24)
[2020-07-18] MEDS: PREDNISOLONE ACETATE 1% OPH SUSP 5 ML OD PRN ×3 (11:23→11:24)
--- NOTE | 2020-07-18 14:47 | Operative Report ---
Operative Report-[facility] Operative Report: DATE OF SURGERY: 07/18/2020 PREOPERATIVE DIAGNOSIS: CATARACT, RIGHT EYE. POSTOPERATIVE DIAGNOSIS: CATARACT, RIGHT EYE. PROCEDURE PERFORMED: PHACOEMULSIFICATION WITH POSTERIOR CHAMBER INTRAOCULAR LENS, RIGHT EYE. Intraocular Lens Model : ZCBOO 22.5 Total Phaco Time: 11.06 CDE SURGEON: ANYA BARCLAY MD ANESTHESIA: TOPICAL WITH MAC. INDICATIONS FOR SURGERY: Difficulty with words on TV. PROCEDURE: The patient was brought to the Operating Room and placed on the operative table. Following tetracaine drops, topical anesthesia was administered. This consisted of instrument wipe pledgets soaked in a solution of 4% Xylocaine mixed with 0.75% Marcaine in a 1:2 ratio. A 2 x 1 cm pledget was placed in the superior fornix. A 1 x 1 cm pledget was placed in the inferior fornix. The eye was patched shut for 5 minutes. The patch was removed. The eye was sterilely prepped and draped in the usual manner. Lid speculum was placed in the eye. The pledgets were removed. 4-0 black silk sutures were placed around the superior and the inferior rectus muscles to be used as traction. A conjunctival peritomy was made at the 10 o'clock position. Hemostasis was obtained with bipolar cautery. A posterior limbal groove was created using a crescent knife and dissected anteriorly towards the cornea. A sharp point blade was used to create a paracentesis site at the 2 o'clock position. 0.2 cc non preserved Lidocaine with epinephrine was injected into the anterior chamber. A 2.4 mm keratome was used to enter the anterior chamber through the groove. Viscoelastic was injected into the anterior chamber. An anterior capsulotomy was performed using Utrata forceps in a capsulorrhexis fashion. Hydrodissection and hydrodelineation were performed. Phacoemulsification was performed in [id number] technique. Following this, the I/A unit was used to remove residual cortex. Viscoelastic was injected into the capsular bag. The Intraocular lens was placed in the capsular bag. The I/A unit was used to remove residual viscoelastic. The wound was seen to be watertight under high and low pressure, and no sutures were placed. The intraocular lens was well centered. The pressure was adjusted in the eye to normal pressure. The 4-0 black silk sutures and lid speculum were removed. The eye was shielded after Besivance. prednisolone, and Cosopt drops were placed. The patient tolerated the procedure well and was sent to the Recovery Room in good condition.
== END 2020-07-18 11:57 ==
LOC: SC 09:55
PROVIDERS: ATTEND Ophthalmology
DX: H25.11 Age-related nuclear cataract, right eye (principal); H57.03 Miosis; Z96.1 Presence of intraocular lens; E11.9 Type 2 diabetes mellitus without complications; I10 Essential (primary) hypertension; E78.00 Pure hypercholesterolemia, unspecified; K21.9 Gastro-esophageal reflux disease without esophagitis; F17.210 Nicotine dependence, cigarettes, uncomplicated; M19.90 Unspecified osteoarthritis, unspecified site; Z85.3 Personal history of malignant neoplasm of breast; Z83.518 Family history of other specified eye disorder; Z79.84 Long term (current) use of oral hypoglycemic drugs
CPT/HCPCS: 66984; 82962; V2632; J2250; J3490 ×5; A9270; J0171

== ENCOUNTER → 2020-09-19 | Outpatient (CLI) | payer MEDICARE, OTHER ==
--- NOTE | 2020-09-19 15:01 | WOMENS IMAGING REPORT ---
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 Read with the assistance of CAD. .COUNT INCLUDES THE [facility] - Cso Version 9.2 LIMITATIONS: None. FINDINGS: Findings present which are benign by mammographic criteria. No suspicious masses, calcific ations or architectural distortion. Pertinent benign findings: Postlumpectomy radiation changes right breast. Benign mammographic findings may include one or more of the following: Smooth masses, popcorn/rim/coa rse calcifications, asymmetries, post-procedure changes, and lesions with long-standing stability. IMPRESSION: BENIGN MAMMOGRAPHIC FINDINGS. BIRADS 2 BREAST DENSITY: b. There are scattered areas of fibroglandular density. BIRAD: ASSESSMENT: 2 BENIGN FINDING(S) RECOMMENDATION: ROUTINE SCREENING COMMENT: The patient has been notified of the results by letter per [facility] requirements. Additional no tification policies are in place for contacting patient with suspicious or incomplete findings. Quality ID #[id number]: The [employer] recommends an annual screening mammogram for women aged 40 years or over. This facility utilizes a reminder system to ensure that all patients receive reminder letters, and/or direct phone calls for appointments. This includes reminders for routine scr eening mammograms, diagnostic mammograms, or other Breast Imaging Interventions when appropriate. Th is patient will be placed in the appropriate reminder system. TECHNICAL DOCUMENTATION: FINDING NUMBER: (1) ASSESSMENT: (1) JOB ID: [id number] 2010 [employer]- All Rights Reserved Reading location - IP/workstation name: [email or web address]
--- NOTE | 2020-09-19 15:12 | WOMENS IMAGING REPORT ---
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 LIMITATIONS: None. FINDINGS: LUMBAR SPINE: The bone mineral density (BMD) measured from L1-L4 in the AP projection correlates with a T-score of 0.3, which is normal as defined by the World Health Organization. BMD Change vs Baseline: N/A HIP: The bone mineral density (BMD) measured in the left hip correlates with a T-score of -0.8, which is n ormal as defined by the World Health Organization. BMD Change vs Baseline: N/A 10 year Fracture Risk Assessment: Major Osteoporotic Fracture: Not available. Hip Fracture: Not available. IMPRESSION: 1. LUMBAR SPINE WHO CLASSIFICATION: NORMAL. 2. HIP WHO CLASSIFICATION: NORMAL. OVERALL ASSESSMENT: WHO CLASSIFICATION: NORMAL. COMMENT: The World Health Organization defines low BMD as follows: T-score: Normal: At or above -1.0 Osteopenia: Between -1.0 and -2.5 Osteoporosis: At or below -2.5 without fractures Established osteoporosis: At or below -2.5 with fractures In general, you may wish to consider: Diagnosis Treatment Follow-up DEXA Normal BMD Prevention 2-3 years Osteopenia Prevention/Therapy 1-2 years Osteoporosis Therapy Yearly TECHNICAL DOCUMENTATION: JOB ID: [id number] 2010 [employer]- All Rights Reserved Reading location - IP/workstation name: [email or web address]
== END ==
LOC: WI 15:31
PROVIDERS: ATTEND Internal Medicine Hematology & Oncology
DX: Z12.31 Encounter for screening mammogram for malignant neoplasm of breast (principal); Z85.3 Personal history of malignant neoplasm of breast; M85.80 Other specified disorders of bone density and structure, unspecified site; Z79.811 Long term (current) use of aromatase inhibitors
CPT/HCPCS: 77063; 77067; 77080